=== PATIENT | male | born 1945 | race African-American/Black ===

== ENCOUNTER 2021-10-19 06:51 | Inpatient (IN) | payer OTHER ==
[~2021-10-19] VITALS: Ht 167.6 cm; Wt 86.7 kg
[~2021-10-19 06:51] MED LIST: APIX5TAB MT; ATOR40TA70 MT; CHOL400D7 PO; FINA5TAB11 MT; FURO-151 MT; ISOS60TA76 MT; METO10TA8 PO; NIFE-33 PO; OMEP40CA20 PO; POTA15TA11 MT; SILD20TA PO; TAMS-11 MT
[2021-10-19 08:30] LABS: BASOPHILS % 0.7 % (0.0-2.0); EOSINOPHILS % 1.7 % (0.0-5.0); HEMATOCRIT. 21.6 % (42.0-52.0); LYMPHOCYTES % 15.2 % (20.0-50.0); MEAN CORPUSCULAR HEMOGLOBIN 23.4 pg (28.0-32.0); MEAN CORPUSCULAR VOLUME 72.4 fL (80.0-94.0); MEAN PLATELET VOLUME 6.5 fl (7.4-10.4); MONOCYTES % 9.1 % (2.0-8.0); NEUTROPHILS % 73.3 % (40.0-76.0); PLATELET 224 x1000/uL (130-400); RED BLOOD CELL COUNT 2.98 mill/uL (4.7-6.1); RED CELL DISTRIBUTION WIDTH 20.8 % (11.6-14.6)
[2021-10-19 08:38] LABS: CHLORIDE 101 mEq/L (98-107)
[2021-10-19] MEDS ORDERED: FUROSEMIDE 40MG/4ML VIAL IVP NR (09:21)
[2021-10-19] MEDS ORDERED: ASPIRIN 325MG EC TABLET PO ONE (12:15)
[2021-10-19 16:00] VITALS: BP 139/94
[2021-10-19 16:30] VITALS: BP 139/94
[2021-10-19] MEDS ORDERED: NON FORMULARY PATIENT HOME MED PO SCH (18:00)
[2021-10-19] MEDS ORDERED: *PATIENT'S OWN MEDICATION STORAGE XX SCH (18:15)
[2021-10-19] MEDS: POTASSIUM CHLORIDE 20MEQ TABLET SR PO SCH (18:47)
[2021-10-19] MEDS: ISOSORBIDE MONONITRATE 60MG TABLET SR 24HR PO SCH (18:47)
[2021-10-19 20:00] VITALS: BP 137/69
[2021-10-19] MEDS: SACUBITRIL/VALSARTAN 24MG/26MG TABLET PO SCH (21:44)
[2021-10-19] MEDS: FUROSEMIDE 40MG/4ML VIAL IVP SCH (21:44)
[2021-10-19] MEDS: TAMSULOSIN HCL 0.4MG SR CAPSULE PO SCH (21:46)
[2021-10-19] MEDS: SILDENAFIL CITRATE 20MG TABLET PO SCH (21:47)
[2021-10-19] MEDS: NIFEDIPINE XL 30MG TAB PO SCH (21:47)
[2021-10-19] MEDS: ATORVASTATIN CALCIUM 40MG TABLET PO SCH (21:47)
[2021-10-20] VITALS: BP 129/77
[2021-10-20 04:00] VITALS: BP 107/55
[2021-10-20] MEDS: ISOSORBIDE MONONITRATE 60MG TABLET SR 24HR PO SCH ×2 (06:00→17:19)
[2021-10-20] MEDS: SILDENAFIL CITRATE 20MG TABLET PO SCH ×3 (06:22→21:27)
[2021-10-20] MEDS: OMEPRAZOLE 20MG CAPSULE EXTENDED RELEASE PO SCH (06:23)
[2021-10-20 08:00] VITALS: BP 104/44
[2021-10-20 08:29] LABS: BASOPHILS % 0.8 % (0.0-2.0); EOSINOPHILS % 2.6 % (0.0-5.0); HEMATOCRIT. 21.3 % (42.0-52.0); LYMPHOCYTES % 18.9 % (20.0-50.0); MEAN CORPUSCULAR HEMOGLOBIN 23.3 pg (28.0-32.0); MEAN CORPUSCULAR VOLUME 73.3 fL (80.0-94.0); MEAN PLATELET VOLUME 6.7 fl (7.4-10.4); MONOCYTES % 7.7 % (2.0-8.0); PLATELET 215 x1000/uL (130-400); RED BLOOD CELL COUNT 2.91 mill/uL (4.7-6.1); RED CELL DISTRIBUTION WIDTH 21.1 % (11.6-14.6)
[2021-10-20 08:37] LABS: HEMOGLOBIN. 6.8 g/dL (14.0-18.0)
[2021-10-20] MEDS: NIFEDIPINE XL 30MG TAB PO SCH ×3 (09:00→21:27)
[2021-10-20] MEDS ORDERED: APIXABAN 5 MG TABLET PO SCH (09:00)
[2021-10-20] MEDS ORDERED: NON FORMULARY PATIENT HOME MED XX SCH (09:00)
[2021-10-20] MEDS: FUROSEMIDE 40MG/4ML VIAL IVP SCH (09:19)
[2021-10-20] MEDS: CHOLECALCIFEROL (VIT D3) 400 UNIT TABLET PO SCH (09:20)
[2021-10-20] MEDS: POTASSIUM CHLORIDE 20MEQ TABLET SR PO SCH (09:20)
[2021-10-20] MEDS: FINASTERIDE 5MG TABLET PO SCH (09:20)
[2021-10-20] MEDS: METOLAZONE 2.5MG TABLET PO SCH (09:20)
[2021-10-20] MEDS ORDERED: POTASSIUM CHLORIDE 20MEQ TABLET SR PO NR (11:30)
[2021-10-20 12:00] VITALS: BP 103/49
[2021-10-20 16:00] VITALS: BP 112/49
[2021-10-20 17:14] LABS: TOTAL IRON BINDING CAPACITY 398 ug/dL (250-450)
[2021-10-20] MEDS: SACUBITRIL/VALSARTAN 24MG/26MG TABLET PO SCH (17:19)
[2021-10-20 20:00] VITALS: BP 111/70
[2021-10-20] MEDS: CARVEDILOL 3.125 MG TABLET PO SCH (21:27)
[2021-10-20] MEDS: ATORVASTATIN CALCIUM 40MG TABLET PO SCH (21:27)
[2021-10-20] MEDS: TAMSULOSIN HCL 0.4MG SR CAPSULE PO SCH (21:27)
[2021-10-21] VITALS (14 sets, daily range): BP systolic 89–120; BP diastolic 43–60
[2021-10-21] MEDS: ISOSORBIDE MONONITRATE 60MG TABLET SR 24HR PO SCH ×2 (05:48→18:00)
[2021-10-21] MEDS: OMEPRAZOLE 20MG CAPSULE EXTENDED RELEASE PO SCH (05:48)
[2021-10-21] MEDS: SACUBITRIL/VALSARTAN 24MG/26MG TABLET PO SCH ×2 (05:48→18:03)
[2021-10-21] MEDS: SILDENAFIL CITRATE 20MG TABLET PO SCH ×3 (05:48→22:07)
[2021-10-21 06:08] LABS: BASOPHILS % 0.4 % (0.0-2.0); EOSINOPHILS % 2.8 % (0.0-5.0); LYMPHOCYTES % 14.8 % (20.0-50.0); MEAN CORPUSCULAR VOLUME 73.5 fL (80.0-94.0); MEAN PLATELET VOLUME 7.1 fl (7.4-10.4); PLATELET 246 x1000/uL (130-400); RED BLOOD CELL COUNT 2.53 mill/uL (4.7-6.1)
[2021-10-21 06:50] LABS: HEMATOCRIT. 18.6 % (42.0-52.0); HEMOGLOBIN. 5.8 g/dL (14.0-18.0)
[2021-10-21] MEDS: NIFEDIPINE XL 30MG TAB PO SCH ×2 (09:00→22:07)
[2021-10-21] MEDS: CARVEDILOL 3.125 MG TABLET PO SCH ×2 (09:00→22:06)
[2021-10-21] MEDS: FINASTERIDE 5MG TABLET PO SCH (09:06)
[2021-10-21] MEDS: POTASSIUM CHLORIDE 20MEQ TABLET SR PO SCH (09:06)
[2021-10-21] MEDS: METOLAZONE 2.5MG TABLET PO SCH (09:06)
[2021-10-21] MEDS: FUROSEMIDE 40MG/4ML VIAL IVP SCH (09:06)
[2021-10-21] MEDS: CHOLECALCIFEROL (VIT D3) 400 UNIT TABLET PO SCH (09:06)
[2021-10-21] MEDS ORDERED: FUROSEMIDE 40MG/4ML VIAL IVP SCH (12:00)
[2021-10-21 12:37] LABS: CREATINE KINASE 48 IU/L (39-308)
[2021-10-21] MEDS: PANTOPRAZOLE SODIUM 40 MG/VIAL IV SCH ×2 (14:39→22:06)
[2021-10-21] MEDS: MORPHINE SULFATE 2 MG/ML CPJ (NOT FOR IM USE) IV PRN (14:40)
[2021-10-21 17:25] LABS: INR 1.4; PROTHROMBIN TIME 14.3 sec (9.6-11.0)
[2021-10-21 17:32] LABS: HEMOGLOBIN 6.6 g/dL (14.0-18.0)
[2021-10-21 17:33] LABS: HEMATOCRIT 20.2 % (42.0-52.0)
[2021-10-21 17:55] LABS: FOLIC ACID (FOLATE) SERUM 9.6 ng/mL (>5.38)
[2021-10-21] MEDS: TAMSULOSIN HCL 0.4MG SR CAPSULE PO SCH (22:06)
[2021-10-21] MEDS: ATORVASTATIN CALCIUM 40MG TABLET PO SCH (22:07)
[2021-10-21] MEDS ORDERED: NALOXONE HCL 0.4MG/ML VIAL IV PRN (23:30)
[2021-10-22] VITALS: BP 104/55
[2021-10-22 00:18] LABS: HEMATOCRIT 23.2 % (42.0-52.0); HEMOGLOBIN 7.6 g/dL (14.0-18.0)
[2021-10-22 04:00] VITALS: BP 111/63
[2021-10-22] MEDS: SACUBITRIL/VALSARTAN 24MG/26MG TABLET PO SCH ×2 (06:54→17:15)
[2021-10-22] MEDS: SILDENAFIL CITRATE 20MG TABLET PO SCH ×3 (06:54→22:24)
[2021-10-22] MEDS: ISOSORBIDE MONONITRATE 60MG TABLET SR 24HR PO SCH ×2 (06:54→17:14)
[2021-10-22 07:33] LABS: BASOPHILS % 0.8 % (0.0-2.0); EOSINOPHILS % 2.8 % (0.0-5.0); HEMATOCRIT. 23.2 % (42.0-52.0); HEMOGLOBIN. 7.5 g/dL (14.0-18.0); MEAN CORPUSCULAR HEMOGLOBIN 24.9 pg (28.0-32.0); MEAN CORPUSCULAR VOLUME 76.4 fL (80.0-94.0); MEAN PLATELET VOLUME 7.2 fl (7.4-10.4); MONOCYTES % 9.8 % (2.0-8.0); NEUTROPHILS % 69.6 % (40.0-76.0); PLATELET 247 x1000/uL (130-400); RED BLOOD CELL COUNT 3.03 mill/uL (4.7-6.1); RED CELL DISTRIBUTION WIDTH 21.9 % (11.6-14.6)
[2021-10-22 08:00] VITALS: BP 105/51
[2021-10-22] MEDS: CARVEDILOL 3.125 MG TABLET PO SCH ×2 (09:00→21:00)
[2021-10-22] MEDS: NIFEDIPINE XL 30MG TAB PO SCH ×2 (09:00→22:24)
[2021-10-22] MEDS: FUROSEMIDE 40MG/4ML VIAL IVP SCH (09:45)
[2021-10-22] MEDS: POTASSIUM CHLORIDE 20MEQ TABLET SR PO SCH (09:45)
[2021-10-22] MEDS: FINASTERIDE 5MG TABLET PO SCH (09:45)
[2021-10-22] MEDS: PANTOPRAZOLE SODIUM 40 MG/VIAL IV SCH ×2 (09:45→22:23)
[2021-10-22] MEDS: METOLAZONE 2.5MG TABLET PO SCH (09:45)
[2021-10-22] MEDS: CHOLECALCIFEROL (VIT D3) 400 UNIT TABLET PO SCH (09:45)
[2021-10-22] MEDS: MORPHINE SULFATE 2 MG/ML CPJ (NOT FOR IM USE) IV PRN (09:48)
[2021-10-22 11:59] LABS: BG BASE EXCESS 0.9 mmol/L (-2.0-2.0); BG HCO3 ACT 24.6 mmol/L (22.0-26.0); BG METHEMOGLOBIN 0.1 % (0.0-1.5); BG OXYGEN SATURATION 88.9 % (92.0-98.5); BG OXYHEMOGLOBIN 87.9 % (94.0-97.0); BG PCO2 35.2 mmHg (35.0-45.0); BG PH 7.462 (7.350-7.450); BG PO2 57.2 mmHg (75.0-100.0); BG SAMPLE SITE RIGHT BRACHIAL; BG TOTAL HEMOGLOBIN 7.9 g/dL (12.0-18.0); BG VENT MODE ROOM AIR
[2021-10-22 12:00] VITALS: BP 100/59
[2021-10-22 12:55] LABS: HEMATOCRIT 22.9 % (42.0-52.0); HEMOGLOBIN 7.4 g/dL (14.0-18.0)
[2021-10-22] MEDS: IRON SUCROSE COMPLEX 100 MG/5 ML ML IV SCH (13:13)
[2021-10-22 14:46] LABS: INR 1.5; PROTHROMBIN TIME 15.3 sec (9.6-11.0)
[2021-10-22 16:00] VITALS: BP 111/64
[2021-10-22 20:00] VITALS: BP 113/57
[2021-10-22 21:09] LABS: HEMATOCRIT 23.5 % (42.0-52.0); HEMOGLOBIN 7.5 g/dL (14.0-18.0)
[2021-10-22] MEDS: ATORVASTATIN CALCIUM 40MG TABLET PO SCH (22:24)
[2021-10-22] MEDS: TAMSULOSIN HCL 0.4MG SR CAPSULE PO SCH (22:24)
[2021-10-23] VITALS (17 sets, daily range): BP systolic 107–141; BP diastolic 53–88
[2021-10-23] MEDS: DEXT 5%/0.45% NACL 1000ML 1,000 ML IV SCH (00:48)
[2021-10-23 01:53] LABS: HEMATOCRIT 22.9 % (42.0-52.0); HEMOGLOBIN 7.3 g/dL (14.0-18.0)
[2021-10-23] MEDS: SILDENAFIL CITRATE 20MG TABLET PO SCH ×3 (06:00→22:26)
[2021-10-23] MEDS: ISOSORBIDE MONONITRATE 60MG TABLET SR 24HR PO SCH ×2 (06:00→18:00)
[2021-10-23] MEDS: SACUBITRIL/VALSARTAN 24MG/26MG TABLET PO SCH (06:00)
[2021-10-23 06:25] LABS: BASOPHILS % 0.5 % (0.0-2.0); EOSINOPHILS % 2.8 % (0.0-5.0); HEMATOCRIT. 21.9 % (42.0-52.0); HEMOGLOBIN. 7.1 g/dL (14.0-18.0); LYMPHOCYTES % 16.7 % (20.0-50.0); MEAN CORPUSCULAR HEMOGLOBIN 25.1 pg (28.0-32.0); MEAN CORPUSCULAR VOLUME 77.6 fL (80.0-94.0); MEAN PLATELET VOLUME 7.1 fl (7.4-10.4); MONOCYTES % 9.2 % (2.0-8.0); NEUTROPHILS % 70.8 % (40.0-76.0); PLATELET 237 x1000/uL (130-400); RED BLOOD CELL COUNT 2.83 mill/uL (4.7-6.1); RED CELL DISTRIBUTION WIDTH 22.1 % (11.6-14.6)
[2021-10-23 06:36] LABS: INR 2.7; PROTHROMBIN TIME 27.2 sec (9.6-11.0)
[2021-10-23] MEDS: FINASTERIDE 5MG TABLET PO SCH (09:00)
[2021-10-23] MEDS: NIFEDIPINE XL 30MG TAB PO SCH ×2 (09:00→22:27)
[2021-10-23] MEDS: METOLAZONE 2.5MG TABLET PO SCH (09:00)
[2021-10-23] MEDS: POTASSIUM CHLORIDE 20MEQ TABLET SR PO SCH (09:00)
[2021-10-23] MEDS: CARVEDILOL 3.125 MG TABLET PO SCH ×2 (09:00→22:27)
[2021-10-23] MEDS: CHOLECALCIFEROL (VIT D3) 400 UNIT TABLET PO SCH (09:00)
[2021-10-23 09:07] LABS: A/G RATIO 0.8 (0.7-1.7); ALBUMIN 3.2 g/dL (2.9-4.4); ALPHA-1-GLOBULIN 0.2 g/dL (0.0-0.4); ALPHA-2-GLOBULIN 0.4 g/dL (0.4-1.0); GAMMA GLOBULINS 2.4 g/dL (0.4-1.8); M-SPIKE 1.1 g/dL (Not Observed); TOTAL PROTEIN SERUM 7.2 g/dL (6.0-8.5)
[2021-10-23] MEDS: PANTOPRAZOLE SODIUM 40 MG/VIAL IV SCH ×2 (09:57→22:34)
[2021-10-23] MEDS: FUROSEMIDE 40MG/4ML VIAL IVP SCH (09:57)
[2021-10-23] MEDS: IRON SUCROSE COMPLEX 100 MG/5 ML ML IV SCH (10:30)
[2021-10-23 10:31] LABS: HEMATOCRIT 22.2 % (42.0-52.0); HEMOGLOBIN 7.2 g/dL (14.0-18.0)
[2021-10-23] MEDS ORDERED: FUROSEMIDE 40MG/4ML VIAL IVP SCH (13:00)
[2021-10-23 13:23] LABS: PLATELET ESTIMATE NORMAL
[2021-10-23] MEDS ORDERED: MIDAZOLAM HCL 2 MG/2 ML VIAL ONE (15:42)
[2021-10-23] MEDS ORDERED: ETOMIDATE 2MG/ML 10ML VIAL IV ONE (15:42)
[2021-10-23] MEDS ORDERED: GLYCOPYRROLATE 0.2 MG/ML 2ML VIAL ONE (15:54)
[2021-10-23] MEDS ORDERED: PROPOFOL 200MG/20ML VIAL IV ONE (15:55)
[2021-10-23] MEDS ORDERED: HYDRALAZINE 20MG/ML VIAL IV PRN (16:00)
[2021-10-23 20:14] LABS: HEMATOCRIT 25.4 % (42.0-52.0); HEMOGLOBIN 8.2 g/dL (14.0-18.0); MEAN CORPUSCULAR HEMOGLOBIN 25.7 pg (28.0-32.0); MEAN CORPUSCULAR VOLUME 79.6 fL (80.0-94.0); PLATELET 222 x1000/uL (130-400); RED CELL DISTRIBUTION WIDTH 21.6 % (11.6-14.6)
[2021-10-23 20:21] LABS: CHLORIDE 105 mEq/L (98-107)
[2021-10-23 20:24] LABS: INR 1.3; PARTIAL THROMBOPLASTIN TIME 29.3 sec (23.4-31.0); PROTHROMBIN TIME 13.7 sec (9.6-11.0)
[2021-10-23 20:54] LABS: HEPATITIS B SURFACE ANTIGEN NEGATIVE
[2021-10-23] MEDS: ATORVASTATIN CALCIUM 40MG TABLET PO SCH (22:24)
[2021-10-23] MEDS: TAMSULOSIN HCL 0.4MG SR CAPSULE PO SCH (22:26)
[2021-10-24] VITALS: BP 98/53
[2021-10-24] MEDS: DEXT 5%/0.45% NACL 1000ML 1,000 ML IV SCH (00:51)
[2021-10-24 04:00] VITALS: BP 104/52
[2021-10-24 06:54] LABS: INR 1.4; PROTHROMBIN TIME 14.2 sec (9.6-11.0)
[2021-10-24 07:27] LABS: BASOPHILS % 0.6 % (0.0-2.0); EOSINOPHILS % 2.2 % (0.0-5.0); HEMATOCRIT. 26.2 % (42.0-52.0); HEMOGLOBIN. 8.4 g/dL (14.0-18.0); LYMPHOCYTES % 14.2 % (20.0-50.0); MEAN CORPUSCULAR HEMOGLOBIN 25.7 pg (28.0-32.0); MEAN CORPUSCULAR VOLUME 79.7 fL (80.0-94.0); MONOCYTES % 8.4 % (2.0-8.0); NEUTROPHILS % 74.6 % (40.0-76.0); PLATELET 222 x1000/uL (130-400); RED BLOOD CELL COUNT 3.29 mill/uL (4.7-6.1); RED CELL DISTRIBUTION WIDTH 21.5 % (11.6-14.6)
[2021-10-24 08:00] VITALS: BP 111/73
[2021-10-24] MEDS: CARVEDILOL 3.125 MG TABLET PO SCH ×2 (09:00→21:00)
[2021-10-24] MEDS: PANTOPRAZOLE SODIUM 40 MG/VIAL IV SCH ×3 (09:00→22:03)
[2021-10-24] MEDS: FINASTERIDE 5MG TABLET PO SCH (11:47)
[2021-10-24] MEDS: POTASSIUM CHLORIDE 20MEQ TABLET SR PO SCH (11:47)
[2021-10-24] MEDS: FUROSEMIDE 40MG/4ML VIAL IVP SCH (11:47)
[2021-10-24] MEDS: CHOLECALCIFEROL (VIT D3) 400 UNIT TABLET PO SCH (11:47)
[2021-10-24] MEDS: METOLAZONE 2.5MG TABLET PO SCH (11:47)
[2021-10-24] MEDS: NIFEDIPINE XL 30MG TAB PO SCH ×2 (11:48→21:00)
[2021-10-24 12:00] VITALS: BP 114/71
[2021-10-24] MEDS ORDERED: IRON SUCROSE COMPLEX 100 MG/5 ML ML IV SCH (14:00)
[2021-10-24] MEDS: SILDENAFIL CITRATE 20MG TABLET PO SCH ×2 (14:16→22:07)
[2021-10-24] MEDS ORDERED: PHYTONADIONE 10MG/ML AMP SUBCUT NR (15:00)
[2021-10-24 16:00] VITALS: BP 95/58
[2021-10-24] MEDS: BISACODYL 5MG TABLET PO SCH ×2 (17:30→22:04)
[2021-10-24] MEDS: SORBITOL 70% SOLN 30ML PO SCH ×2 (17:30→22:08)
[2021-10-24] MEDS: METOCLOPRAMIDE HCL 10MG/2ML VIAL IV SCH ×2 (17:31→22:03)
[2021-10-24] MEDS: SACUBITRIL/VALSARTAN 24MG/26MG TABLET PO SCH ×2 (17:33→17:35)
[2021-10-24] MEDS: DEXT 5%/0.45% NACL KCL 40MEQ/L 1,000 ML IV SCH (17:33)
[2021-10-24] MEDS: ISOSORBIDE MONONITRATE 60MG TABLET SR 24HR PO SCH (17:35)
[2021-10-24 19:57] LABS: CLARITY URINE CLEAR (CLEAR); COLOR URINE YELLOW (YELLOW); KETONES URINE NEGATIVE (NEGATIVE); LEUKOCYTE ESTERASE URINE TRACE (NEGATIVE); NITRITE URINE NEGATIVE (NEGATIVE); OCCULT BLOOD URINE NEGATIVE (NEGATIVE); PROTEIN URINE NEGATIVE (NEGATIVE); UROBILINOGEN URINE 0.2 E.U./dL (0.2-1.0)
[2021-10-24 20:00] VITALS: BP 110/45
[2021-10-24 20:33] LABS: HEMATOCRIT 28.4 % (42.0-52.0)
[2021-10-24] MEDS: TAMSULOSIN HCL 0.4MG SR CAPSULE PO SCH (22:06)
[2021-10-24] MEDS: ATORVASTATIN CALCIUM 40MG TABLET PO SCH (22:07)
[2021-10-25] VITALS: BP 110/57
[2021-10-25 02:08] LABS: HEMATOCRIT 27.4 % (42.0-52.0); HEMOGLOBIN 8.9 g/dL (14.0-18.0)
[2021-10-25] MEDS: SORBITOL 70% SOLN 30ML PO SCH ×2 (02:53→06:20)
[2021-10-25] MEDS: METOCLOPRAMIDE HCL 10MG/2ML VIAL IV SCH ×2 (02:53→06:20)
[2021-10-25] MEDS: BISACODYL 5MG TABLET PO SCH ×2 (02:53→06:20)
[2021-10-25 03:55] LABS: EOSINOPHILS % 3.3 % (0.0-5.0); HEMATOCRIT. 27.4 % (42.0-52.0); HEMOGLOBIN. 8.9 g/dL (14.0-18.0); LYMPHOCYTES % 12.1 % (20.0-50.0); MEAN CORPUSCULAR HEMOGLOBIN 25.6 pg (28.0-32.0); MEAN CORPUSCULAR VOLUME 78.8 fL (80.0-94.0); MEAN PLATELET VOLUME 7.4 fl (7.4-10.4); MONOCYTES % 9.8 % (2.0-8.0); NEUTROPHILS % 73.8 % (40.0-76.0); PLATELET 252 x1000/uL (130-400); RED BLOOD CELL COUNT 3.47 mill/uL (4.7-6.1); RED CELL DISTRIBUTION WIDTH 22.3 % (11.6-14.6)
[2021-10-25 04:00] VITALS: BP 102/56
[2021-10-25 04:10] LABS: PHOSPHORUS 3.7 mg/dL (2.5-4.9)
[2021-10-25 04:38] LABS: INR 1.3
[2021-10-25] MEDS: SACUBITRIL/VALSARTAN 24MG/26MG TABLET PO SCH ×2 (06:00→18:23)
[2021-10-25] MEDS: SILDENAFIL CITRATE 20MG TABLET PO SCH ×3 (06:00→22:39)
[2021-10-25] MEDS: ISOSORBIDE MONONITRATE 60MG TABLET SR 24HR PO SCH ×2 (06:00→18:24)
[2021-10-25 08:00] VITALS: BP 122/58
[2021-10-25] MEDS: POTASSIUM CHLORIDE 20MEQ TABLET SR PO SCH ×2 (08:23→09:00)
[2021-10-25] MEDS: FUROSEMIDE 40MG/4ML VIAL IVP SCH (08:23)
[2021-10-25] MEDS: PANTOPRAZOLE SODIUM 40 MG/VIAL IV SCH ×2 (08:23→20:15)
[2021-10-25] MEDS: NIFEDIPINE XL 30MG TAB PO SCH ×3 (08:23→20:14)
[2021-10-25] MEDS: FINASTERIDE 5MG TABLET PO SCH ×2 (08:23→09:00)
[2021-10-25] MEDS: CARVEDILOL 3.125 MG TABLET PO SCH ×3 (08:24→20:15)
[2021-10-25] MEDS: METOLAZONE 2.5MG TABLET PO SCH ×2 (08:24→09:00)
[2021-10-25] MEDS: CHOLECALCIFEROL (VIT D3) 400 UNIT TABLET PO SCH ×2 (08:27→09:00)
[2021-10-25] MEDS ORDERED: POTASSIUM CHLORIDE 20MEQ/PACKET PO NR (09:45)
[2021-10-25 12:00] VITALS: BP 121/62
[2021-10-25] MEDS: DEXT 5%/0.45% NACL KCL 40MEQ/L 1,000 ML IV SCH (13:39)
[2021-10-25] MEDS ORDERED: KCL 20MEQ/100ML PREMIX 100 ML IV NR (14:00)
[2021-10-25] MEDS ORDERED: PROPOFOL 200MG/20ML VIAL IV ONE ×2 (15:12→15:58)
[2021-10-25] MEDS ORDERED: MIDAZOLAM HCL 2 MG/2 ML VIAL ONE (15:12)
[2021-10-25] MEDS ORDERED: LIDOCAINE HCL 1% 10 MG/ML 10ML VIAL ONE (15:13)
[2021-10-25] MEDS ORDERED: FENTANYL CITRATE/PF 50MCG/ML 2ML VIAL ONE (15:24)
[2021-10-25] MEDS ORDERED: GLYCOPYRROLATE 0.2 MG/ML 2ML VIAL ONE (15:28)
[2021-10-25 18:05] VITALS: BP 138/68
[2021-10-25 20:00] VITALS: BP 152/69
[2021-10-25] MEDS: ATORVASTATIN CALCIUM 40MG TABLET PO SCH (20:15)
[2021-10-25] MEDS: TAMSULOSIN HCL 0.4MG SR CAPSULE PO SCH (20:15)
[2021-10-26] VITALS (7 sets, daily range): BP systolic 93–133; BP diastolic 45–76
[2021-10-26] MEDS: SACUBITRIL/VALSARTAN 24MG/26MG TABLET PO SCH ×2 (05:22→17:21)
[2021-10-26] MEDS: ISOSORBIDE MONONITRATE 60MG TABLET SR 24HR PO SCH ×2 (05:24→17:21)
[2021-10-26] MEDS: SILDENAFIL CITRATE 20MG TABLET PO SCH ×3 (05:27→21:29)
[2021-10-26 07:34] LABS: CHLORIDE 108 mEq/L (98-107)
[2021-10-26] MEDS: CHOLECALCIFEROL (VIT D3) 400 UNIT TABLET PO SCH (08:33)
[2021-10-26] MEDS: FINASTERIDE 5MG TABLET PO SCH (08:33)
[2021-10-26] MEDS: FUROSEMIDE 40MG TABLET PO SCH (08:33)
[2021-10-26] MEDS: METOLAZONE 2.5MG TABLET PO SCH (08:33)
[2021-10-26] MEDS: CARVEDILOL 3.125 MG TABLET PO SCH ×2 (08:34→21:00)
[2021-10-26] MEDS: NIFEDIPINE XL 30MG TAB PO SCH ×2 (08:34→21:00)
[2021-10-26] MEDS: POTASSIUM CHLORIDE 20MEQ/PACKET PO SCH (08:34)
[2021-10-26] MEDS: PANTOPRAZOLE SODIUM 40 MG/VIAL IV SCH ×2 (08:34→20:15)
[2021-10-26] MEDS: DEXT 5%/0.45% NACL KCL 40MEQ/L 1,000 ML IV SCH (08:40)
[2021-10-26] MEDS: ATORVASTATIN CALCIUM 40MG TABLET PO SCH (20:15)
[2021-10-26] MEDS: TAMSULOSIN HCL 0.4MG SR CAPSULE PO SCH (20:16)
[2021-10-27] VITALS: BP 121/63
[2021-10-27 04:00] VITALS: BP 114/59
[2021-10-27] MEDS: ISOSORBIDE MONONITRATE 60MG TABLET SR 24HR PO SCH (05:03)
[2021-10-27] MEDS: SACUBITRIL/VALSARTAN 24MG/26MG TABLET PO SCH (05:03)
[2021-10-27] MEDS: SILDENAFIL CITRATE 20MG TABLET PO SCH ×2 (05:04→13:50)
[2021-10-27] MEDS: DEXT 5%/0.45% NACL KCL 40MEQ/L 1,000 ML IV SCH (05:05)
[2021-10-27 06:40] LABS: CHLORIDE 106 mEq/L (98-107)
[2021-10-27 08:00] VITALS: BP 110/55
[2021-10-27] MEDS: FUROSEMIDE 40MG TABLET PO SCH (08:12)
[2021-10-27] MEDS: PANTOPRAZOLE SODIUM 40 MG/VIAL IV SCH (08:12)
[2021-10-27] MEDS: CHOLECALCIFEROL (VIT D3) 400 UNIT TABLET PO SCH (08:12)
[2021-10-27] MEDS: FINASTERIDE 5MG TABLET PO SCH (08:13)
[2021-10-27] MEDS: CARVEDILOL 3.125 MG TABLET PO SCH (08:13)
[2021-10-27] MEDS: METOLAZONE 2.5MG TABLET PO SCH (08:13)
[2021-10-27] MEDS: POTASSIUM CHLORIDE 20MEQ/PACKET PO SCH (08:13)
[2021-10-27] MEDS: NIFEDIPINE XL 30MG TAB PO SCH (08:14)
[2021-10-27 12:00] VITALS: BP 123/75
[2021-10-27 12:45] VITALS: BP 123/75
[2021-10-27] MEDS ORDERED: CARV3.1242 MT (13:01)
== END 2021-10-27 17:35 | disposition home or self-care (01) | DRG 377 ==
LOC: ER 08:07 → 8WST 12:08 → EDBEDREQ 12:10 → EDBEDREQTM 12:10 → ENRESERV 13:04
PROVIDERS: ADMIT Internal Medicine; ATTEND Internal Medicine
PROC: 30233N1 Transfusion of Nonautologous Red Blood Cells into Peripheral Vein, Percutaneous Approach (ICD-10-PCS; 2021-10-21)
PROC: 0DJ68ZZ Inspection of Stomach, Via Natural or Artificial Opening Endoscopic (ICD-10-PCS; principal; 2021-10-23)
PROC: 0W3P8ZZ Control Bleeding in Gastrointestinal Tract, Via Natural or Artificial Opening Endoscopic (ICD-10-PCS; 2021-10-24)
PROC: 0D5K8ZZ Destruction of Ascending Colon, Via Natural or Artificial Opening Endoscopic (ICD-10-PCS; 2021-10-24)
PROC: 0DBH8ZX Excision of Cecum, Via Natural or Artificial Opening Endoscopic, Diagnostic (ICD-10-PCS; 2021-10-24)
PROC: 0DJ08ZZ Inspection of Upper Intestinal Tract, Via Natural or Artificial Opening Endoscopic (ICD-10-PCS; 2021-10-25)
DX: K29.51 Unspecified chronic gastritis with bleeding (principal); N17.0 Acute kidney failure with tubular necrosis; I50.23 Acute on chronic systolic (congestive) heart failure; I13.0 Hypertensive heart and chronic kidney disease with heart failure and stage 1 through stage 4 chronic kidney disease, or unspecified chronic kidney disease; I48.20 Chronic atrial fibrillation, unspecified; D68.9 Coagulation defect, unspecified; R18.8 Other ascites; I42.0 Dilated cardiomyopathy; I27.29 Other secondary pulmonary hypertension; I27.81 Cor pulmonale (chronic); D63.8 Anemia in other chronic diseases classified elsewhere; E87.6 Hypokalemia; N18.9 Chronic kidney disease, unspecified; R09.02 Hypoxemia; Z20.822 Contact with and (suspected) exposure to COVID-19; D50.9 Iron deficiency anemia, unspecified; I25.10 Atherosclerotic heart disease of native coronary artery without angina pectoris; Z96.652 Presence of left artificial knee joint; E78.5 Hyperlipidemia, unspecified; K44.9 Diaphragmatic hernia without obstruction or gangrene; K57.30 Diverticulosis of large intestine without perforation or abscess without bleeding; K74.60 Unspecified cirrhosis of liver; N40.0 Benign prostatic hyperplasia without lower urinary tract symptoms; N20.0 Calculus of kidney; Z90.49 Acquired absence of other specified parts of digestive tract; Z79.01 Long term (current) use of anticoagulants; Z79.899 Other long term (current) drug therapy; Z79.84 Long term (current) use of oral hypoglycemic drugs
CPT/HCPCS: 36415; 36600; 71045; 74176; 76700; 76770; 78278; 80048; 80053; 80061; 81003; 82270; 82375; 82550; 82607; 82728; 82746; 82805; 83540; 83550; 83735; 83880; 84100; 84153; 84155; 84165; 84484; 85014; 85018; 85025; 85027; 85044; 86705; 86709; 86803; 86850; 86900; 86920; 86927; 87340; 87426; 88305; 93005; 93970; 97162; 99285; A9560; C1893; C9113; J1940; J2250; J2270; J2704; J2765; J3010; J3430; J3480; J3490; J7040; P9016; P9017; G0103

== ENCOUNTER 2021-11-23 11:17 | Inpatient (IN) | payer OTHER ==
[~2021-11-23] VITALS: Ht 172.7 cm; Wt 96.3 kg
[~2021-11-23 11:17] MED LIST changes: -APIX5TAB MT; +CARV3.1242 MT
[2021-11-23] MEDS ORDERED: NITROGLYCERIN OINT 1GM/INCH UDPKT TD ONE (12:00)
[2021-11-23] MEDS ORDERED: ASPIRIN 81MG TABLET PO ONE (12:00)
[2021-11-23] MEDS ORDERED: FUROSEMIDE 40MG/4ML VIAL IV ONE (12:00)
[2021-11-23 12:02] LABS: BASOPHILS % 0.6 % (0.0-2.0); EOSINOPHILS % 2.3 % (0.0-5.0); HEMOGLOBIN. 8.2 g/dL (14.0-18.0); LYMPHOCYTES % 18.3 % (20.0-50.0); MEAN CORPUSCULAR HEMOGLOBIN 25.3 pg (28.0-32.0); MEAN CORPUSCULAR VOLUME 80.6 fL (80.0-94.0); MEAN PLATELET VOLUME 7.2 fl (7.4-10.4); NEUTROPHILS % 68.8 % (40.0-76.0); PLATELET 177 x1000/uL (130-400); RED BLOOD CELL COUNT 3.23 mill/uL (4.7-6.1); RED CELL DISTRIBUTION WIDTH 25.5 % (11.6-14.6)
[2021-11-23 12:14] LABS: INR 1.5; PARTIAL THROMBOPLASTIN TIME 36.3 sec (23.4-31.0); PROTHROMBIN TIME 15.7 sec (9.6-11.0)
[2021-11-23 12:15] LABS: CHLORIDE 107 mEq/L (98-107)
[2021-11-23 12:23] LABS: PLATELET ESTIMATE NORMAL
[2021-11-23 16:00] VITALS: BP 128/63
[2021-11-23] MEDS: NIFEDIPINE XL 30MG TAB PO SCH (16:36)
[2021-11-23] MEDS: ISOSORBIDE MONONITRATE 30MG TABLET SR 24HR PO SCH (16:47)
[2021-11-23] MEDS: TAMSULOSIN HCL 0.4MG SR CAPSULE PO SCH (16:48)
[2021-11-23] MEDS: POTASSIUM CHLORIDE 10MEQ TABLET SR PO SCH (16:48)
[2021-11-23] MEDS: FINASTERIDE 5MG TABLET PO SCH (16:49)
[2021-11-23] MEDS: PANTOPRAZOLE 40MG DR TABLET PO SCH (16:49)
[2021-11-23] MEDS: SPIRONOLACTONE 25MG TABLET PO SCH (16:49)
[2021-11-23] MEDS ORDERED: FUROSEMIDE 40MG/4ML VIAL IVP SCH ×2 (17:00→17:45)
[2021-11-23 17:18] VITALS: BP 128/53
[2021-11-23] MEDS ORDERED: KETOROLAC 15MG/ML VIAL IV PRN (19:00)
[2021-11-23 20:00] VITALS: BP 133/60
[2021-11-23] MEDS: ATORVASTATIN CALCIUM 40MG TABLET PO SCH (20:38)
[2021-11-23] MEDS: ACETAMINOPHEN 325MG TABLET PO PRN (20:38)
[2021-11-23] MEDS: CARVEDILOL 3.125 MG TABLET PO SCH (21:00)
[2021-11-23] MEDS ORDERED: ENOXAPARIN 40MG/0.4ML SYR SUBCUT SCH (21:00)
[2021-11-23] MEDS: FUROSEMIDE 40MG/4ML VIAL IVP SCH (21:52)
[2021-11-24] VITALS: BP 141/72
[2021-11-24 04:00] VITALS: BP 127/93
[2021-11-24] MEDS: PANTOPRAZOLE 40MG DR TABLET PO SCH (06:48)
[2021-11-24] MEDS: FUROSEMIDE 40MG/4ML VIAL IVP SCH ×3 (06:48→20:33)
[2021-11-24 08:00] VITALS: BP 142/76
[2021-11-24 08:21] LABS: BASOPHILS % 0.7 % (0.0-2.0); EOSINOPHILS % 3.3 % (0.0-5.0); HEMATOCRIT. 26.1 % (42.0-52.0); HEMOGLOBIN. 8.4 g/dL (14.0-18.0); LYMPHOCYTES % 21.9 % (20.0-50.0); MEAN CORPUSCULAR HEMOGLOBIN 26.1 pg (28.0-32.0); MEAN PLATELET VOLUME 6.9 fl (7.4-10.4); MONOCYTES % 9.1 % (2.0-8.0); PLATELET 149 x1000/uL (130-400); RED BLOOD CELL COUNT 3.22 mill/uL (4.7-6.1); RED CELL DISTRIBUTION WIDTH 25.1 % (11.6-14.6)
[2021-11-24] MEDS: SPIRONOLACTONE 25MG TABLET PO SCH (08:58)
[2021-11-24] MEDS: CARVEDILOL 3.125 MG TABLET PO SCH ×2 (08:59→09:00)
[2021-11-24] MEDS: NIFEDIPINE XL 30MG TAB PO SCH (09:00)
[2021-11-24] MEDS: ISOSORBIDE MONONITRATE 30MG TABLET SR 24HR PO SCH (09:00)
[2021-11-24] MEDS: TAMSULOSIN HCL 0.4MG SR CAPSULE PO SCH (09:00)
[2021-11-24] MEDS: POTASSIUM CHLORIDE 10MEQ TABLET SR PO SCH (09:01)
[2021-11-24] MEDS: FINASTERIDE 5MG TABLET PO SCH (09:01)
[2021-11-24 12:00] VITALS: BP 129/75
[2021-11-24] MEDS: ACETAMINOPHEN 325MG TABLET PO PRN ×2 (12:13→20:33)
[2021-11-24] MEDS ORDERED: POTASSIUM CHLORIDE 20MEQ TABLET SR PO NR (14:15)
[2021-11-24] MEDS ORDERED: ENOXAPARIN 100MG/ML SYR SUBCUT SCH (14:30)
[2021-11-24] MEDS: SILDENAFIL CITRATE 20MG TABLET PO SCH ×2 (15:26→20:33)
[2021-11-24 16:00] VITALS: BP 127/70
[2021-11-24 20:00] VITALS: BP 125/66
[2021-11-24] MEDS: ATORVASTATIN CALCIUM 40MG TABLET PO SCH (20:33)
[2021-11-25] VITALS: BP 116/70
[2021-11-25 04:00] VITALS: BP 118/79
[2021-11-25] MEDS: FUROSEMIDE 40MG/4ML VIAL IVP SCH ×3 (05:30→22:09)
[2021-11-25] MEDS: SILDENAFIL CITRATE 20MG TABLET PO SCH ×3 (05:30→22:09)
[2021-11-25 06:19] LABS: BASOPHILS % 0.3 % (0.0-2.0); EOSINOPHILS % 2.6 % (0.0-5.0); HEMATOCRIT. 26.3 % (42.0-52.0); HEMOGLOBIN. 8.5 g/dL (14.0-18.0); LYMPHOCYTES % 24.3 % (20.0-50.0); MEAN CORPUSCULAR HEMOGLOBIN 26.1 pg (28.0-32.0); MEAN CORPUSCULAR VOLUME 80.7 fL (80.0-94.0); MEAN PLATELET VOLUME 8.3 fl (7.4-10.4); MONOCYTES % 9.9 % (2.0-8.0); NEUTROPHILS % 62.9 % (40.0-76.0); PLATELET 161 x1000/uL (130-400); RED BLOOD CELL COUNT 3.26 mill/uL (4.7-6.1); RED CELL DISTRIBUTION WIDTH 24.9 % (11.6-14.6)
[2021-11-25 08:05] VITALS: BP 121/63
[2021-11-25] MEDS: NIFEDIPINE XL 30MG TAB PO SCH (08:07)
[2021-11-25] MEDS: FAMOTIDINE 20MG TABLET PO SCH (08:07)
[2021-11-25] MEDS: TAMSULOSIN HCL 0.4MG SR CAPSULE PO SCH (08:07)
[2021-11-25] MEDS: FINASTERIDE 5MG TABLET PO SCH (08:08)
[2021-11-25] MEDS: SPIRONOLACTONE 25MG TABLET PO SCH (08:08)
[2021-11-25] MEDS: ISOSORBIDE MONONITRATE 30MG TABLET SR 24HR PO SCH (08:08)
[2021-11-25] MEDS: POTASSIUM CHLORIDE 10MEQ TABLET SR PO SCH (08:08)
[2021-11-25] MEDS: ACETAMINOPHEN 325MG TABLET PO PRN ×3 (08:12→22:09)
[2021-11-25 12:00] VITALS: BP 127/69
[2021-11-25 12:33] LABS: INR 1.5; PROTHROMBIN TIME 15.6 sec (9.6-11.0)
[2021-11-25 12:53] LABS: CLARITY URINE CLEAR (CLEAR); COLOR URINE YELLOW (YELLOW); KETONES URINE NEGATIVE (NEGATIVE); LEUKOCYTE ESTERASE URINE NEGATIVE (NEGATIVE); NITRITE URINE NEGATIVE (NEGATIVE); OCCULT BLOOD URINE NEGATIVE (NEGATIVE); PROTEIN URINE NEGATIVE (NEGATIVE); SPECIFIC GRAVITY URINE 1.009 (1.005-1.030); UROBILINOGEN URINE 0.2 E.U./dL (0.2-1.0)
[2021-11-25 16:30] VITALS: BP 121/72
[2021-11-25] MEDS: APIXABAN 2.5 MG TABLET PO SCH (16:33)
[2021-11-25 20:00] VITALS: BP 120/70
[2021-11-25] MEDS: ATORVASTATIN CALCIUM 40MG TABLET PO SCH (22:09)
[2021-11-26] VITALS: BP 117/66
[2021-11-26 04:00] VITALS: BP 120/60
[2021-11-26] MEDS: FUROSEMIDE 40MG/4ML VIAL IVP SCH ×3 (05:10→21:32)
[2021-11-26] MEDS: ACETAMINOPHEN 325MG TABLET PO PRN (05:11)
[2021-11-26] MEDS: SILDENAFIL CITRATE 20MG TABLET PO SCH ×3 (05:11→21:32)
[2021-11-26 06:46] LABS: HEMATOCRIT. 25.8 % (42.0-52.0); HEMOGLOBIN. 8.3 g/dL (14.0-18.0); MEAN CORPUSCULAR HEMOGLOBIN 25.5 pg (28.0-32.0); MEAN CORPUSCULAR VOLUME 79.5 fL (80.0-94.0); PLATELET 158 x1000/uL (130-400); RED BLOOD CELL COUNT 3.24 mill/uL (4.7-6.1); RED CELL DISTRIBUTION WIDTH 24.8 % (11.6-14.6)
[2021-11-26 08:00] VITALS: BP 117/58
[2021-11-26] MEDS: FAMOTIDINE 20MG TABLET PO SCH (08:45)
[2021-11-26] MEDS: APIXABAN 2.5 MG TABLET PO SCH ×2 (08:46→16:37)
[2021-11-26] MEDS: FINASTERIDE 5MG TABLET PO SCH (08:46)
[2021-11-26] MEDS: TAMSULOSIN HCL 0.4MG SR CAPSULE PO SCH (08:46)
[2021-11-26] MEDS: POTASSIUM CHLORIDE 10MEQ TABLET SR PO SCH (08:47)
[2021-11-26] MEDS: SPIRONOLACTONE 25MG TABLET PO SCH (08:47)
[2021-11-26] MEDS: ISOSORBIDE MONONITRATE 30MG TABLET SR 24HR PO SCH (08:50)
[2021-11-26 10:07] LABS: PLATELET ESTIMATE NORMAL
[2021-11-26] MEDS ORDERED: POTASSIUM CHLORIDE 20MEQ TABLET SR PO NR (10:15)
[2021-11-26 12:00] VITALS: BP 116/54
[2021-11-26] MEDS ORDERED: METOLAZONE 2.5MG TABLET PO NR (13:00)
[2021-11-26 16:00] VITALS: BP 115/88
[2021-11-26 20:00] VITALS: BP 93/63
[2021-11-26] MEDS: ATORVASTATIN CALCIUM 40MG TABLET PO SCH (21:32)
[2021-11-27] VITALS: BP 141/73
[2021-11-27] MEDS: FUROSEMIDE 40MG/4ML VIAL IVP SCH ×3 (00:22→13:07)
[2021-11-27] MEDS: SILDENAFIL CITRATE 20MG TABLET PO SCH ×3 (00:27→13:08)
[2021-11-27 04:00] VITALS: BP 125/59
[2021-11-27 06:57] LABS: BASOPHILS % 0.5 % (0.0-2.0); EOSINOPHILS % 2.6 % (0.0-5.0); HEMATOCRIT. 25.6 % (42.0-52.0); HEMOGLOBIN. 8.3 g/dL (14.0-18.0); LYMPHOCYTES % 18.2 % (20.0-50.0); MEAN CORPUSCULAR HEMOGLOBIN 25.7 pg (28.0-32.0); MEAN CORPUSCULAR VOLUME 79.4 fL (80.0-94.0); MEAN PLATELET VOLUME 6.8 fl (7.4-10.4); MONOCYTES % 10.5 % (2.0-8.0); NEUTROPHILS % 68.2 % (40.0-76.0); PLATELET 146 x1000/uL (130-400); RED BLOOD CELL COUNT 3.22 mill/uL (4.7-6.1); RED CELL DISTRIBUTION WIDTH 24.9 % (11.6-14.6)
[2021-11-27 08:00] VITALS: BP 144/80
[2021-11-27] MEDS: POTASSIUM CHLORIDE 10MEQ TABLET SR PO SCH (08:27)
[2021-11-27] MEDS: ISOSORBIDE MONONITRATE 30MG TABLET SR 24HR PO SCH (08:27)
[2021-11-27] MEDS: TAMSULOSIN HCL 0.4MG SR CAPSULE PO SCH (08:27)
[2021-11-27] MEDS: SPIRONOLACTONE 25MG TABLET PO SCH (08:28)
[2021-11-27] MEDS: FAMOTIDINE 20MG TABLET PO SCH (08:28)
[2021-11-27] MEDS: FINASTERIDE 5MG TABLET PO SCH (08:28)
[2021-11-27] MEDS: APIXABAN 2.5 MG TABLET PO SCH ×2 (08:28→16:37)
[2021-11-27 12:00] VITALS: BP 132/65
[2021-11-27] MEDS ORDERED: APIX2.5T MT (15:18)
[2021-11-27] MEDS ORDERED: FURO-151 MT (15:18)
[2021-11-27 15:51] VITALS: BP 122/64
[2021-11-27] MEDS: ACETAMINOPHEN 325MG TABLET PO PRN (16:37)
== END 2021-11-27 16:55 | disposition home or self-care (01) | DRG 682 ==
LOC: ER 12:22 → 7EST 14:02 → EDBEDREQ 14:05 → ENRESERV 14:12
PROVIDERS: ADMIT Internal Medicine; ATTEND Internal Medicine
DX: N17.9 Acute kidney failure, unspecified (principal); I50.23 Acute on chronic systolic (congestive) heart failure; I13.0 Hypertensive heart and chronic kidney disease with heart failure and stage 1 through stage 4 chronic kidney disease, or unspecified chronic kidney disease; I48.20 Chronic atrial fibrillation, unspecified; E44.1 Mild protein-calorie malnutrition; D68.9 Coagulation defect, unspecified; I42.0 Dilated cardiomyopathy; N18.4 Chronic kidney disease, stage 4 (severe); R06.03 Acute respiratory distress; I27.20 Pulmonary hypertension, unspecified; I27.81 Cor pulmonale (chronic); D64.9 Anemia, unspecified; D72.819 Decreased white blood cell count, unspecified; I27.29 Other secondary pulmonary hypertension; N40.0 Benign prostatic hyperplasia without lower urinary tract symptoms; Z96.659 Presence of unspecified artificial knee joint; E78.5 Hyperlipidemia, unspecified; K74.60 Unspecified cirrhosis of liver; Z79.899 Other long term (current) drug therapy; Z79.01 Long term (current) use of anticoagulants; Z90.49 Acquired absence of other specified parts of digestive tract; Z68.32 Body mass index [BMI] 32.0-32.9, adult; R00.1 Bradycardia, unspecified; K29.70 Gastritis, unspecified, without bleeding
CPT/HCPCS: 36415; 71045; 80048; 80053; 80061; 81003; 83735; 83880; 84132; 84153; 84443; 84484; 85025; 87077; 87186; 93005; 97161; 97166; 99285; J1650; J1940; G0103

== ENCOUNTER 2022-01-29 21:28 | Inpatient (IN) | payer OTHER ==
[~2022-01-29] VITALS: Ht 172.7 cm; Wt 94.4 kg
[~2022-01-29 21:28] MED LIST changes: +APIX2.5T MT; -METO10TA8 PO
[2022-01-30 01:42] LABS: BASOPHILS % 0.3 % (0.0-2.0); EOSINOPHILS % 0.2 % (0.0-5.0); HEMATOCRIT. 28.8 % (42.0-52.0); HEMOGLOBIN. 8.6 g/dL (14.0-18.0); LYMPHOCYTES % 7.8 % (20.0-50.0); MEAN CORPUSCULAR HEMOGLOBIN 23.8 pg (28.0-32.0); MEAN CORPUSCULAR VOLUME 79.7 fL (80.0-94.0); MEAN PLATELET VOLUME 6.3 fl (7.4-10.4); NEUTROPHILS % 86.7 % (40.0-76.0); PLATELET 239 x1000/uL (130-400); RED BLOOD CELL COUNT 3.61 mill/uL (4.7-6.1); RED CELL DISTRIBUTION WIDTH 21.6 % (11.6-14.6)
[2022-01-30 01:44] LABS: CHLORIDE 107 mEq/L (98-107)
[2022-01-30] MEDS ORDERED: ONDANSETRON HCL 4MG/2ML INJ IV STA (01:54)
[2022-01-30] MEDS ORDERED: MORPHINE SULFATE 4 MG/ML CPJ (NOT FOR IM USE) IV STA (01:54)
[2022-01-30] MEDS ORDERED: SODIUM CHLORIDE 0.9% 1,000 ML IV ONE (02:00)
[2022-01-30] MEDS ORDERED: FUROSEMIDE 20MG/2ML VIAL IVP ONE (03:15)
[2022-01-30 04:04] LABS: CLARITY URINE CLEAR (CLEAR); COLOR URINE YELLOW (YELLOW); KETONES URINE NEGATIVE (NEGATIVE); LEUKOCYTE ESTERASE URINE TRACE (NEGATIVE); NITRITE URINE NEGATIVE (NEGATIVE); OCCULT BLOOD URINE NEGATIVE (NEGATIVE); PROTEIN URINE 1+ (NEGATIVE); SPECIFIC GRAVITY URINE 1.012 (1.005-1.030); UROBILINOGEN URINE 0.2 E.U./dL (0.2-1.0)
[2022-01-30] MEDS ORDERED: METRONIDAZOLE 500 MG PREMIX 100 ML IV STA (04:15)
[2022-01-30] MEDS ORDERED: LEVOFLOXACIN 750MG PREMIX 150 ML IV STA (04:15)
[2022-01-30] MEDS ORDERED: NALOXONE HCL 0.4MG/ML VIAL IV PRN (06:00)
[2022-01-30] MEDS: MORPHINE SULFATE 2 MG/ML CPJ (NOT FOR IM USE) IV PRN ×2 (06:03→11:58)
[2022-01-30 12:00] VITALS: BP 158/86
[2022-01-30 12:45] VITALS: BP 172/90
[2022-01-30] MEDS ORDERED: ACETAMINOPHEN 325MG TABLET PO PRN (14:45)
[2022-01-30] MEDS ORDERED: LOSARTAN POTASSIUM 50 MG TABLET PO ONE (15:00)
[2022-01-30 15:36] VITALS: BP 151/87
[2022-01-30] MEDS: FUROSEMIDE 40MG/4ML VIAL IVP SCH (16:40)
[2022-01-30] MEDS: HYDROCODONE/ACETAMINOPHEN 5/325MG TABLET PO PRN ×2 (16:40→20:54)
[2022-01-30 20:00] VITALS: BP 161/102
[2022-01-30] MEDS ORDERED: IPRATROPIUM/ALBUTEROL 0.5-3(2.5)MG/3ML NEB HHN PRN (21:45)
[2022-01-30] MEDS ORDERED: GUAIFENESIN-DM 200MG-20MG/10ML UDC PO PRN (21:45)
[2022-01-30] MEDS: CARVEDILOL 12.5MG TABLET PO SCH (22:18)
[2022-01-30] MEDS: ONDANSETRON HCL 4MG/2ML INJ IV PRN (22:25)
[2022-01-31] VITALS (7 sets, daily range): BP systolic 137–156; BP diastolic 76–95
[2022-01-31] MEDS: HYDROCODONE/ACETAMINOPHEN 5/325MG TABLET PO PRN ×2 (01:00→20:50)
[2022-01-31 03:12] LABS: HEMATOCRIT. 31.7 % (42.0-52.0); HEMOGLOBIN. 9.6 g/dL (14.0-18.0); MEAN CORPUSCULAR VOLUME 78.7 fL (80.0-94.0); MEAN PLATELET VOLUME 6.7 fl (7.4-10.4); PLATELET 239 x1000/uL (130-400); RED BLOOD CELL COUNT 4.02 mill/uL (4.7-6.1); RED CELL DISTRIBUTION WIDTH 21.6 % (11.6-14.6)
[2022-01-31 03:18] LABS: INR 1.4; PROTHROMBIN TIME 14.5 sec (9.6-11.0)
[2022-01-31 05:56] LABS: NUCLEATED RED BLOOD CELLS 1 /100 WBC
[2022-01-31 05:57] LABS: PLATELET ESTIMATE NORMAL
[2022-01-31] MEDS: FUROSEMIDE 40MG/4ML VIAL IVP SCH ×3 (08:22→20:49)
[2022-01-31] MEDS: PANTOPRAZOLE SODIUM 40 MG/VIAL IV SCH (08:22)
[2022-01-31] MEDS: CARVEDILOL 12.5MG TABLET PO SCH ×2 (09:00→20:51)
[2022-01-31] MEDS ORDERED: LOSARTAN POTASSIUM 50 MG TABLET PO SCH (09:00)
[2022-01-31] MEDS ORDERED: SODIUM BICARBONATE 4% (2.4MEQ) 5ML VIAL IV ONE (10:24)
[2022-01-31] MEDS ORDERED: LIDOCAINE HCL/PF 1% 10 MG/ML 5ML VIAL ONE (10:24)
[2022-01-31 13:55] LABS: INR 1.4; PROTHROMBIN TIME 14.8 sec (9.6-11.0)
[2022-01-31 14:02] LABS: BASOPHILS % 0.2 % (0.0-2.0); HEMATOCRIT. 32.8 % (42.0-52.0); HEMOGLOBIN. 9.8 g/dL (14.0-18.0); LYMPHOCYTES % 10.4 % (20.0-50.0); MEAN CORPUSCULAR VOLUME 80.5 fL (80.0-94.0); MEAN PLATELET VOLUME 6.9 fl (7.4-10.4); MONOCYTES % 7.1 % (2.0-8.0); NEUTROPHILS % 82.3 % (40.0-76.0); PLATELET 226 x1000/uL (130-400); RED BLOOD CELL COUNT 4.08 mill/uL (4.7-6.1); RED CELL DISTRIBUTION WIDTH 22.2 % (11.6-14.6)
[2022-01-31] MEDS ORDERED: SODIUM POLYSTYRENE SULFONATE 15 G/60 ML BOT PO NR ×2 (20:00)
[2022-01-31] MEDS ORDERED: INSULIN REGULAR (HUMULIN R) 300UNITS/3ML VIAL IV NR (20:00)
[2022-01-31] MEDS ORDERED: DEXTROSE 50% WATER 50ML SYRINGE IV NR (20:00)
[2022-02-01] VITALS: BP_SYST 136; BP_SYST 144; BP_DIAS 73; BP_DIAS 88
[2022-02-01] MEDS: HYDROCODONE/ACETAMINOPHEN 5/325MG TABLET PO PRN ×3 (00:56→10:20)
[2022-02-01] MEDS: ONDANSETRON HCL 4MG/2ML INJ IV PRN ×2 (01:15→06:40)
[2022-02-01 04:00] VITALS: BP 159/98
[2022-02-01 06:59] LABS: BASOPHILS % 0.3 % (0.0-2.0); EOSINOPHILS % 0.1 % (0.0-5.0); HEMATOCRIT. 33.5 % (42.0-52.0); HEMOGLOBIN. 10.2 g/dL (14.0-18.0); LYMPHOCYTES % 12.1 % (20.0-50.0); MEAN CORPUSCULAR HEMOGLOBIN 24.1 pg (28.0-32.0); MEAN CORPUSCULAR VOLUME 78.8 fL (80.0-94.0); MEAN PLATELET VOLUME 7.1 fl (7.4-10.4); MONOCYTES % 7.7 % (2.0-8.0); NEUTROPHILS % 79.8 % (40.0-76.0); PLATELET 222 x1000/uL (130-400); RED BLOOD CELL COUNT 4.25 mill/uL (4.7-6.1)
[2022-02-01] MEDS ORDERED: SODIUM POLYSTYRENE SULFONATE 15 G/60 ML BOT PO NR ×2 (08:00→17:15)
[2022-02-01 08:03] VITALS: BP 154/95
[2022-02-01] MEDS: FUROSEMIDE 40MG/4ML VIAL IVP SCH (08:19)
[2022-02-01] MEDS: CARVEDILOL 12.5MG TABLET PO SCH ×2 (08:19→23:04)
[2022-02-01] MEDS: PANTOPRAZOLE SODIUM 40 MG/VIAL IV SCH (08:19)
[2022-02-01] MEDS ORDERED: CALCIUM GLUCONATE 1,000 MG in DEXT 5% WATER 90 ML IV STA (09:18)
[2022-02-01] MEDS ORDERED: INSULIN REGULAR (HUMULIN R) 300UNITS/3ML VIAL IV NR (09:18)
[2022-02-01] MEDS ORDERED: DEXTROSE 50% WATER 50ML SYRINGE IV NR (09:18)
[2022-02-01] MEDS ORDERED: SODIUM BICARBONATE 8.4% 1 MEQ/ML 50ML SYR IV NR (09:18)
[2022-02-01] MEDS: TAMSULOSIN HCL 0.4MG SR CAPSULE PO SCH (10:20)
[2022-02-01] MEDS ORDERED: CALCIUM GLUCONATE 1GM PREMIX 50 ML IV NR (11:00)
[2022-02-01 12:00] VITALS: BP 143/86
[2022-02-01 16:00] VITALS: BP 150/89
[2022-02-01] MEDS ORDERED: NALOXONE HCL 0.4MG/ML VIAL IV PRN (17:15)
[2022-02-01 20:00] VITALS: BP 137/80
[2022-02-02] VITALS: BP 117/84
[2022-02-02 04:00] VITALS: BP 111/69
[2022-02-02 06:43] LABS: BASOPHILS % 0.2 % (0.0-2.0); EOSINOPHILS % 0.1 % (0.0-5.0); HEMATOCRIT. 33.2 % (42.0-52.0); LYMPHOCYTES % 15.6 % (20.0-50.0); MEAN CORPUSCULAR HEMOGLOBIN 24.3 pg (28.0-32.0); MEAN CORPUSCULAR VOLUME 80.8 fL (80.0-94.0); MEAN PLATELET VOLUME 7.3 fl (7.4-10.4); MONOCYTES % 11.1 % (2.0-8.0); PLATELET 204 x1000/uL (130-400); RED BLOOD CELL COUNT 4.11 mill/uL (4.7-6.1); RED CELL DISTRIBUTION WIDTH 21.8 % (11.6-14.6)
[2022-02-02 08:00] VITALS: BP 107/63
[2022-02-02] MEDS: TAMSULOSIN HCL 0.4MG SR CAPSULE PO SCH (08:36)
[2022-02-02] MEDS: PANTOPRAZOLE SODIUM 40 MG/VIAL IV SCH (08:36)
[2022-02-02] MEDS: CARVEDILOL 12.5MG TABLET PO SCH ×2 (08:36→20:55)
[2022-02-02] MEDS ORDERED: ALBUTEROL (0.083%) 2.5MG/3ML NEB HHN NR (08:45)
[2022-02-02] MEDS ORDERED: SODIUM POLYSTYRENE SULFONATE 15 G/60 ML BOT PO NR (08:45)
[2022-02-02] MEDS: SODIUM CHLORIDE 0.9% 1,000 ML IV SCH (10:33)
[2022-02-02] MEDS: CITRIC ACID/SODIUM CITRATE SOLN 30ML UDC PO SCH ×3 (10:34→17:25)
[2022-02-02 12:00] VITALS: BP 101/60
[2022-02-02 16:00] VITALS: BP 123/60
[2022-02-02 20:27] VITALS: BP 122/62
[2022-02-03 00:27] VITALS: BP 114/67
[2022-02-03 04:00] VITALS: BP 127/67
[2022-02-03] MEDS: SODIUM CHLORIDE 0.9% 1,000 ML IV SCH (05:40)
[2022-02-03 06:59] LABS: BASOPHILS % 0.2 % (0.0-2.0); EOSINOPHILS % 0.5 % (0.0-5.0); HEMATOCRIT. 29.8 % (42.0-52.0); HEMOGLOBIN. 9.2 g/dL (14.0-18.0); MEAN CORPUSCULAR HEMOGLOBIN 24.3 pg (28.0-32.0); MEAN CORPUSCULAR VOLUME 78.4 fL (80.0-94.0); MEAN PLATELET VOLUME 7.4 fl (7.4-10.4); MONOCYTES % 10.8 % (2.0-8.0); NEUTROPHILS % 75.5 % (40.0-76.0); PLATELET 178 x1000/uL (130-400); RED CELL DISTRIBUTION WIDTH 21.8 % (11.6-14.6)
[2022-02-03 08:00] VITALS: BP 120/65
[2022-02-03] MEDS: CITRIC ACID/SODIUM CITRATE SOLN 30ML UDC PO SCH ×3 (08:56→17:00)
[2022-02-03] MEDS: TAMSULOSIN HCL 0.4MG SR CAPSULE PO SCH (08:57)
[2022-02-03] MEDS: PANTOPRAZOLE SODIUM 40 MG/VIAL IV SCH (08:57)
[2022-02-03] MEDS: CARVEDILOL 12.5MG TABLET PO SCH (08:57)
[2022-02-03 12:00] VITALS: BP 117/70
[2022-02-03 16:00] VITALS: BP 139/83
[2022-02-03] MEDS: HYDROCODONE/ACETAMINOPHEN 5/325MG TABLET PO PRN (18:33)
[2022-02-03 20:00] VITALS: BP 130/77
[2022-02-04] VITALS: BP 128/76
[2022-02-04 04:00] VITALS: BP 132/78
[2022-02-04 07:14] LABS: BASOPHILS % 0.2 % (0.0-2.0); EOSINOPHILS % 0.5 % (0.0-5.0); HEMATOCRIT. 28.3 % (42.0-52.0); HEMOGLOBIN. 8.7 g/dL (14.0-18.0); LYMPHOCYTES % 10.9 % (20.0-50.0); MEAN CORPUSCULAR HEMOGLOBIN 24.3 pg (28.0-32.0); MEAN CORPUSCULAR VOLUME 78.8 fL (80.0-94.0); MEAN PLATELET VOLUME 7.6 fl (7.4-10.4); MONOCYTES % 10.7 % (2.0-8.0); NEUTROPHILS % 77.7 % (40.0-76.0); PLATELET 159 x1000/uL (130-400); RED BLOOD CELL COUNT 3.59 mill/uL (4.7-6.1); RED CELL DISTRIBUTION WIDTH 21.4 % (11.6-14.6)
[2022-02-04 08:00] VITALS: BP 131/72
[2022-02-04] MEDS: PANTOPRAZOLE SODIUM 40 MG/VIAL IV SCH (08:47)
[2022-02-04] MEDS: CITRIC ACID/SODIUM CITRATE SOLN 30ML UDC PO SCH ×3 (08:47→17:31)
[2022-02-04] MEDS: TAMSULOSIN HCL 0.4MG SR CAPSULE PO SCH (08:47)
[2022-02-04] MEDS: FUROSEMIDE 40MG TABLET PO SCH ×2 (09:41→17:33)
[2022-02-04 12:00] VITALS: BP 125/67
[2022-02-04 16:00] VITALS: BP 143/79
[2022-02-04 20:00] VITALS: BP 138/78
[2022-02-04] MEDS: HYDROCODONE/ACETAMINOPHEN 5/325MG TABLET PO PRN (20:53)
[2022-02-05] VITALS: BP 139/75
[2022-02-05 04:00] VITALS: BP 132/72
[2022-02-05] MEDS: FUROSEMIDE 40MG TABLET PO SCH ×2 (05:13→17:27)
[2022-02-05 06:20] LABS: BASOPHILS % 0.2 % (0.0-2.0); EOSINOPHILS % 0.5 % (0.0-5.0); HEMATOCRIT. 28.3 % (42.0-52.0); HEMOGLOBIN. 8.7 g/dL (14.0-18.0); MEAN CORPUSCULAR HEMOGLOBIN 24.1 pg (28.0-32.0); MEAN CORPUSCULAR VOLUME 78.3 fL (80.0-94.0); MEAN PLATELET VOLUME 7.6 fl (7.4-10.4); MONOCYTES % 11.1 % (2.0-8.0); NEUTROPHILS % 74.2 % (40.0-76.0); PLATELET 158 x1000/uL (130-400); RED BLOOD CELL COUNT 3.62 mill/uL (4.7-6.1); RED CELL DISTRIBUTION WIDTH 21.7 % (11.6-14.6)
[2022-02-05 08:00] VITALS: BP 128/79
[2022-02-05] MEDS: TAMSULOSIN HCL 0.4MG SR CAPSULE PO SCH (09:31)
[2022-02-05] MEDS: PANTOPRAZOLE SODIUM 40 MG/VIAL IV SCH (09:31)
[2022-02-05 16:00] VITALS: BP 138/79
[2022-02-05 20:00] VITALS: BP 136/75
[2022-02-06] VITALS: BP 122/83
[2022-02-06] MEDS: HYDROCODONE/ACETAMINOPHEN 5/325MG TABLET PO PRN ×2 (03:16→14:10)
[2022-02-06 04:00] VITALS: BP 94/67
[2022-02-06] MEDS: FUROSEMIDE 40MG TABLET PO SCH (06:07)
[2022-02-06 06:15] LABS: BASOPHILS % 0.2 % (0.0-2.0); EOSINOPHILS % 0.9 % (0.0-5.0); HEMATOCRIT. 27.5 % (42.0-52.0); HEMOGLOBIN. 8.5 g/dL (14.0-18.0); LYMPHOCYTES % 13.7 % (20.0-50.0); MEAN CORPUSCULAR VOLUME 77.4 fL (80.0-94.0); MEAN PLATELET VOLUME 7.7 fl (7.4-10.4); MONOCYTES % 10.1 % (2.0-8.0); NEUTROPHILS % 75.1 % (40.0-76.0); PLATELET 169 x1000/uL (130-400); RED BLOOD CELL COUNT 3.55 mill/uL (4.7-6.1); RED CELL DISTRIBUTION WIDTH 22.7 % (11.6-14.6)
[2022-02-06 08:00] VITALS: BP 146/76
[2022-02-06] MEDS: PANTOPRAZOLE SODIUM 40 MG/VIAL IV SCH (09:04)
[2022-02-06] MEDS: TAMSULOSIN HCL 0.4MG SR CAPSULE PO SCH (09:05)
[2022-02-06 12:00] VITALS: BP 131/75
[2022-02-06 14:56] VITALS: BP 129/74
== END 2022-02-06 17:02 | disposition home or self-care (01) | DRG 432 ==
LOC: ER 21:28 → MICUSO 01-30 03:07 → 7WST 01-30 10:56
PROVIDERS: ADMIT Internal Medicine; ATTEND Internal Medicine
PROC: 0W9G3ZZ Drainage of Peritoneal Cavity, Percutaneous Approach (ICD-10-PCS; principal; 2022-01-31)
DX: K74.69 Other cirrhosis of liver (principal); I50.23 Acute on chronic systolic (congestive) heart failure; J96.20 Acute and chronic respiratory failure, unspecified whether with hypoxia or hypercapnia; R18.8 Other ascites; I13.0 Hypertensive heart and chronic kidney disease with heart failure and stage 1 through stage 4 chronic kidney disease, or unspecified chronic kidney disease; N17.9 Acute kidney failure, unspecified; N18.9 Chronic kidney disease, unspecified; I27.20 Pulmonary hypertension, unspecified; I25.10 Atherosclerotic heart disease of native coronary artery without angina pectoris; E87.5 Hyperkalemia; D64.9 Anemia, unspecified; R91.8 Other nonspecific abnormal finding of lung field; I48.91 Unspecified atrial fibrillation; Z20.822 Contact with and (suspected) exposure to COVID-19; K40.90 Unilateral inguinal hernia, without obstruction or gangrene, not specified as recurrent; Z96.659 Presence of unspecified artificial knee joint; Z86.16 Personal history of COVID-19; Z79.01 Long term (current) use of anticoagulants; Z79.899 Other long term (current) drug therapy; Z90.49 Acquired absence of other specified parts of digestive tract; N40.0 Benign prostatic hyperplasia without lower urinary tract symptoms
CPT/HCPCS: 36415; 49083; 71045; 74176; 76700; 80048; 80053; 81003; 83735; 83880; 84100; 84132; 84484; 85025; 87426; 93005; 97116; 97161; 97162; 99285; C1893; C9113; J0610; J1815; J1940; J1956; J2270; J2405; J3490; J7030

== ENCOUNTER 2022-03-24 21:27 | Inpatient (IN) | payer OTHER ==
[~2022-03-24] VITALS: Ht 172.7 cm; Wt 102.5 kg
[~2022-03-24 21:27] MED LIST changes: +CAPS60CR3 TP
[2022-03-24 23:30] LABS: CHLORIDE 107 mEq/L (98-107)
[2022-03-24 23:34] LABS: BASOPHILS % 0.6 % (0.0-2.0); EOSINOPHILS % 0.2 % (0.0-5.0); HEMATOCRIT. 29.9 % (42.0-52.0); HEMOGLOBIN. 8.9 g/dL (14.0-18.0); LYMPHOCYTES % 22.3 % (20.0-50.0); MEAN CORPUSCULAR HEMOGLOBIN 24.3 pg (28.0-32.0); MEAN CORPUSCULAR VOLUME 81.2 fL (80.0-94.0); MEAN PLATELET VOLUME 6.8 fl (7.4-10.4); MONOCYTES % 8.7 % (2.0-8.0); NEUTROPHILS % 68.2 % (40.0-76.0); PLATELET 198 x1000/uL (130-400); RED BLOOD CELL COUNT 3.68 mill/uL (4.7-6.1); RED CELL DISTRIBUTION WIDTH 21.7 % (11.6-14.6)
[2022-03-24 23:43] LABS: INR 1.6; PROTHROMBIN TIME 16.8 sec (9.6-11.0)
[2022-03-25] MEDS ORDERED: FUROSEMIDE 100MG/10ML VIAL IVP ONE (00:45)
[2022-03-25] MEDS ORDERED: LABETALOL HCL VIAL 20 MG/4 ML VIAL IV ONE (03:30)
[2022-03-25 05:20] VITALS: BP 152/91
[2022-03-25] MEDS ORDERED: FURO80TA87 MT (05:55)
[2022-03-25 08:00] VITALS: BP 151/94
[2022-03-25 08:08] VITALS: BP 151/94
[2022-03-25 08:14] LABS: BASOPHILS % 0.5 % (0.0-2.0); EOSINOPHILS % 0.3 % (0.0-5.0); HEMATOCRIT. 29.6 % (42.0-52.0); LYMPHOCYTES % 21.3 % (20.0-50.0); MEAN CORPUSCULAR HEMOGLOBIN 24.8 pg (28.0-32.0); MEAN CORPUSCULAR VOLUME 81.5 fL (80.0-94.0); MEAN PLATELET VOLUME 6.9 fl (7.4-10.4); MONOCYTES % 11.7 % (2.0-8.0); NEUTROPHILS % 66.2 % (40.0-76.0); PLATELET 195 x1000/uL (130-400); RED BLOOD CELL COUNT 3.64 mill/uL (4.7-6.1); RED CELL DISTRIBUTION WIDTH 21.8 % (11.6-14.6)
[2022-03-25] MEDS ORDERED: LOSARTAN POTASSIUM 50 MG TABLET PO SCH (09:00)
[2022-03-25] MEDS ORDERED: CARVEDILOL 3.125 MG TABLET PO SCH ×2 (09:00→17:00)
[2022-03-25] MEDS: FUROSEMIDE 40MG/4ML VIAL IVP SCH ×3 (09:35→20:55)
[2022-03-25 09:50] LABS: CREATINE KINASE 46 IU/L (39-308)
[2022-03-25 13:37] VITALS: BP 143/79
[2022-03-25] MEDS: TAMSULOSIN HCL 0.4MG SR CAPSULE PO SCH (14:13)
[2022-03-25] MEDS: APIXABAN 2.5 MG TABLET PO SCH ×2 (14:14→18:14)
[2022-03-25] MEDS: ISOSORBIDE MONONITRATE 60MG TABLET SR 24HR PO SCH (14:14)
[2022-03-25] MEDS: ATORVASTATIN CALCIUM 40MG TABLET PO SCH (14:15)
[2022-03-25] MEDS: NIFEDIPINE XL 30MG TAB PO SCH (14:15)
[2022-03-25] MEDS: FINASTERIDE 5MG TABLET PEG SCH (14:15)
[2022-03-25] MEDS: SILDENAFIL CITRATE 20MG TABLET PO SCH ×2 (14:16→18:14)
[2022-03-25 16:00] VITALS: BP 145/94
[2022-03-25 20:00] VITALS: BP 119/78
[2022-03-26] VITALS: BP 120/60
[2022-03-26 04:00] VITALS: BP 96/62
[2022-03-26] MEDS: FUROSEMIDE 40MG/4ML VIAL IVP SCH ×3 (05:14→21:56)
[2022-03-26 07:43] LABS: HEMATOCRIT. 25.2 % (42.0-52.0); HEMOGLOBIN. 7.7 g/dL (14.0-18.0); MEAN CORPUSCULAR HEMOGLOBIN 24.6 pg (28.0-32.0); MEAN CORPUSCULAR VOLUME 80.5 fL (80.0-94.0); RED BLOOD CELL COUNT 3.13 mill/uL (4.7-6.1); RED CELL DISTRIBUTION WIDTH 21.3 % (11.6-14.6)
[2022-03-26 08:03] LABS: PHOSPHORUS 3.7 mg/dL (2.5-4.9)
[2022-03-26 08:05] VITALS: BP 95/51
[2022-03-26] MEDS: NIFEDIPINE XL 30MG TAB PO SCH (08:12)
[2022-03-26] MEDS: ISOSORBIDE MONONITRATE 60MG TABLET SR 24HR PO SCH (08:12)
[2022-03-26] MEDS: SILDENAFIL CITRATE 20MG TABLET PO SCH ×3 (08:13→16:41)
[2022-03-26] MEDS: TAMSULOSIN HCL 0.4MG SR CAPSULE PO SCH (08:14)
[2022-03-26] MEDS: APIXABAN 2.5 MG TABLET PO SCH (08:43)
[2022-03-26] MEDS: FINASTERIDE 5MG TABLET PEG SCH (09:22)
[2022-03-26] MEDS: METOLAZONE 5MG TABLET PO SCH (09:22)
[2022-03-26] MEDS: ATORVASTATIN CALCIUM 40MG TABLET PO SCH (09:22)
[2022-03-26] MEDS ORDERED: NALOXONE HCL 0.4MG/ML VIAL IV PRN (11:30)
[2022-03-26 11:57] VITALS: BP 111/62
[2022-03-26] MEDS: GABAPENTIN 100MG CAPSULE PO SCH ×2 (12:44→16:41)
[2022-03-26 14:40] LABS: NUCLEATED RED BLOOD CELLS 1 /100 WBC
[2022-03-26 14:41] LABS: PLATELET ESTIMATE NORMAL
[2022-03-26 14:42] LABS: MEAN PLATELET VOLUME 6.8 fl (7.4-10.4); PLATELET 184 x1000/uL (130-400)
[2022-03-26] MEDS: HYDROCODONE/ACETAMINOPHEN 5/325MG TABLET PO PRN ×2 (15:39→22:48)
[2022-03-26] MEDS ORDERED: CHOL400D7 PO (16:14)
[2022-03-26] MEDS ORDERED: FURO40TA5 PO (16:14)
[2022-03-26] MEDS ORDERED: ISOS60TA76 PO (16:15)
[2022-03-26] MEDS ORDERED: NIFE-33 PO (16:16)
[2022-03-26] MEDS ORDERED: POTA-205 PO (16:17)
[2022-03-26 16:18] VITALS: BP 119/62
[2022-03-26] MEDS ORDERED: METO2.5T2 PO (16:19)
[2022-03-26] MEDS ORDERED: SACU1TAB PO (16:20)
[2022-03-26 20:00] VITALS: BP 109/61
[2022-03-26] MEDS: EPOETIN ALFA-EPBX 4,000 UNIT/ML VIAL SUBCUT SCH (21:58)
[2022-03-27] VITALS: BP 117/63
[2022-03-27 04:00] VITALS: BP 125/61
[2022-03-27] MEDS: FUROSEMIDE 40MG/4ML VIAL IVP SCH ×3 (06:43→22:11)
[2022-03-27 07:37] LABS: BASOPHILS % 0.6 % (0.0-2.0); EOSINOPHILS % 2.5 % (0.0-5.0); HEMATOCRIT. 24.8 % (42.0-52.0); HEMOGLOBIN. 7.5 g/dL (14.0-18.0); MEAN CORPUSCULAR HEMOGLOBIN 24.7 pg (28.0-32.0); MEAN CORPUSCULAR VOLUME 81.6 fL (80.0-94.0); MEAN PLATELET VOLUME 6.7 fl (7.4-10.4); MONOCYTES % 10.7 % (2.0-8.0); NEUTROPHILS % 68.2 % (40.0-76.0); PLATELET 176 x1000/uL (130-400); RED BLOOD CELL COUNT 3.04 mill/uL (4.7-6.1); RED CELL DISTRIBUTION WIDTH 21.9 % (11.6-14.6)
[2022-03-27 08:00] VITALS: BP 121/65
[2022-03-27] MEDS ORDERED: SODIUM BICARBONATE 4% (2.4MEQ) 5ML VIAL IV ONE (08:01)
[2022-03-27] MEDS ORDERED: LIDOCAINE HCL/PF 1% 10 MG/ML 5ML VIAL ONE (08:01)
[2022-03-27] MEDS: TAMSULOSIN HCL 0.4MG SR CAPSULE PO SCH (08:31)
[2022-03-27] MEDS: ATORVASTATIN CALCIUM 40MG TABLET PO SCH (08:31)
[2022-03-27] MEDS: GABAPENTIN 100MG CAPSULE PO SCH ×3 (08:31→18:42)
[2022-03-27] MEDS: ISOSORBIDE MONONITRATE 60MG TABLET SR 24HR PO SCH (08:32)
[2022-03-27] MEDS: FINASTERIDE 5MG TABLET PEG SCH (08:32)
[2022-03-27] MEDS: METOLAZONE 5MG TABLET PO SCH (08:32)
[2022-03-27] MEDS: SILDENAFIL CITRATE 20MG TABLET PO SCH ×3 (08:32→18:46)
[2022-03-27] MEDS: NIFEDIPINE XL 30MG TAB PO SCH (08:32)
[2022-03-27] MEDS ORDERED: POTASSIUM CHLORIDE 20MEQ TABLET SR PO ONE (09:30)
[2022-03-27] MEDS: HYDROCODONE/ACETAMINOPHEN 5/325MG TABLET PO PRN ×3 (10:04→22:19)
[2022-03-27 12:00] VITALS: BP 107/65
[2022-03-27 16:00] VITALS: BP 118/60
[2022-03-27 20:00] VITALS: BP 112/65
[2022-03-28] VITALS (7 sets, daily range): BP systolic 104–153; BP diastolic 52–66
[2022-03-28] MEDS: HYDROCODONE/ACETAMINOPHEN 5/325MG TABLET PO PRN ×3 (05:23→22:15)
[2022-03-28] MEDS: FUROSEMIDE 40MG/4ML VIAL IVP SCH ×3 (06:30→22:01)
[2022-03-28 07:39] LABS: PHOSPHORUS 3.9 mg/dL (2.5-4.9)
[2022-03-28 08:18] LABS: BASOPHILS % 0.7 % (0.0-2.0); HEMATOCRIT. 23.9 % (42.0-52.0); HEMOGLOBIN. 7.1 g/dL (14.0-18.0); LYMPHOCYTES % 18.6 % (20.0-50.0); MEAN CORPUSCULAR HEMOGLOBIN 24.3 pg (28.0-32.0); MEAN CORPUSCULAR VOLUME 81.5 fL (80.0-94.0); MEAN PLATELET VOLUME 6.9 fl (7.4-10.4); MONOCYTES % 11.9 % (2.0-8.0); NEUTROPHILS % 65.8 % (40.0-76.0); PLATELET 172 x1000/uL (130-400); RED BLOOD CELL COUNT 2.93 mill/uL (4.7-6.1); RED CELL DISTRIBUTION WIDTH 22.2 % (11.6-14.6)
[2022-03-28] MEDS: METOLAZONE 5MG TABLET PO SCH (08:20)
[2022-03-28] MEDS: TAMSULOSIN HCL 0.4MG SR CAPSULE PO SCH (08:20)
[2022-03-28] MEDS: ISOSORBIDE MONONITRATE 60MG TABLET SR 24HR PO SCH (08:21)
[2022-03-28] MEDS: GABAPENTIN 100MG CAPSULE PO SCH ×3 (08:21→17:18)
[2022-03-28] MEDS: FINASTERIDE 5MG TABLET PEG SCH (08:21)
[2022-03-28] MEDS: NIFEDIPINE XL 30MG TAB PO SCH (08:21)
[2022-03-28] MEDS: SILDENAFIL CITRATE 20MG TABLET PO SCH ×3 (08:22→17:21)
[2022-03-28] MEDS: ATORVASTATIN CALCIUM 40MG TABLET PO SCH (08:22)
[2022-03-28 16:10] LABS: EOSINOPHILS % 2.9 % (0.0-5.0); LYMPHOCYTES % 20.2 % (20.0-50.0); MEAN CORPUSCULAR HEMOGLOBIN 24.5 pg (28.0-32.0); MEAN CORPUSCULAR VOLUME 80.9 fL (80.0-94.0); MEAN PLATELET VOLUME 6.5 fl (7.4-10.4); MONOCYTES % 11.4 % (2.0-8.0); NEUTROPHILS % 64.5 % (40.0-76.0); PLATELET 176 x1000/uL (130-400); RED BLOOD CELL COUNT 2.85 mill/uL (4.7-6.1); RED CELL DISTRIBUTION WIDTH 21.3 % (11.6-14.6)
[2022-03-28] MEDS: EPOETIN ALFA-EPBX 4,000 UNIT/ML VIAL SUBCUT SCH (22:01)
[2022-03-29] VITALS (8 sets, daily range): BP systolic 112–135; BP diastolic 58–84
[2022-03-29] MEDS: FUROSEMIDE 40MG/4ML VIAL IVP SCH ×2 (05:14→13:14)
[2022-03-29 08:56] LABS: BASOPHILS % 0.6 % (0.0-2.0); EOSINOPHILS % 2.2 % (0.0-5.0); HEMATOCRIT. 26.8 % (42.0-52.0); HEMOGLOBIN. 8.2 g/dL (14.0-18.0); LYMPHOCYTES % 15.2 % (20.0-50.0); MEAN CORPUSCULAR HEMOGLOBIN 24.4 pg (28.0-32.0); MEAN CORPUSCULAR VOLUME 80.1 fL (80.0-94.0); MEAN PLATELET VOLUME 6.8 fl (7.4-10.4); MONOCYTES % 10.7 % (2.0-8.0); NEUTROPHILS % 71.3 % (40.0-76.0); PLATELET 176 x1000/uL (130-400); RED BLOOD CELL COUNT 3.34 mill/uL (4.7-6.1); RED CELL DISTRIBUTION WIDTH 21.3 % (11.6-14.6)
[2022-03-29] MEDS: NIFEDIPINE XL 30MG TAB PO SCH (09:08)
[2022-03-29] MEDS: FINASTERIDE 5MG TABLET PEG SCH (09:08)
[2022-03-29] MEDS: ATORVASTATIN CALCIUM 40MG TABLET PO SCH (09:08)
[2022-03-29] MEDS: ISOSORBIDE MONONITRATE 60MG TABLET SR 24HR PO SCH (09:08)
[2022-03-29] MEDS: GABAPENTIN 100MG CAPSULE PO SCH ×2 (09:08→13:14)
[2022-03-29] MEDS: METOLAZONE 5MG TABLET PO SCH (09:08)
[2022-03-29] MEDS: TAMSULOSIN HCL 0.4MG SR CAPSULE PO SCH (09:08)
[2022-03-29] MEDS: SILDENAFIL CITRATE 20MG TABLET PO SCH ×2 (09:09→13:14)
[2022-03-29] MEDS ORDERED: POTASSIUM CHLORIDE 20MEQ TABLET SR PO NR (09:45)
[2022-03-29] MEDS: HYDROCODONE/ACETAMINOPHEN 5/325MG TABLET PO PRN (10:12)
[2022-03-29] MEDS ORDERED: POTA-205 MT (14:32)
[2022-03-29] MEDS ORDERED: REV20 PO (14:32)
[2022-03-29] MEDS ORDERED: FURO40TA5 PO (14:32)
[2022-03-29] MEDS ORDERED: METO5TAB7 MT (14:33)
[2022-03-30] MEDS ORDERED: FUROSEMIDE 40MG/4ML VIAL IVP SCH (09:00)
[2022-03-30] MEDS ORDERED: AMLODIPINE 5MG TABLET PO SCH (10:00)
== END 2022-03-29 17:36 | disposition home or self-care (01) | DRG 291 ==
LOC: ER 21:27 → 6WST 03-25 01:03 → ENRESERV 03-25 04:19
PROVIDERS: ADMIT Internal Medicine; ATTEND Internal Medicine
PROC: 30233N1 Transfusion of Nonautologous Red Blood Cells into Peripheral Vein, Percutaneous Approach (ICD-10-PCS; principal; 2022-03-28)
DX: I13.0 Hypertensive heart and chronic kidney disease with heart failure and stage 1 through stage 4 chronic kidney disease, or unspecified chronic kidney disease (principal); I50.23 Acute on chronic systolic (congestive) heart failure; I48.20 Chronic atrial fibrillation, unspecified; N17.9 Acute kidney failure, unspecified; R18.8 Other ascites; I42.0 Dilated cardiomyopathy; N18.9 Chronic kidney disease, unspecified; Z20.822 Contact with and (suspected) exposure to COVID-19; D72.819 Decreased white blood cell count, unspecified; E87.5 Hyperkalemia; N40.0 Benign prostatic hyperplasia without lower urinary tract symptoms; D63.1 Anemia in chronic kidney disease; I27.20 Pulmonary hypertension, unspecified; E78.5 Hyperlipidemia, unspecified; E11.22 Type 2 diabetes mellitus with diabetic chronic kidney disease; K74.60 Unspecified cirrhosis of liver; I27.81 Cor pulmonale (chronic); I25.10 Atherosclerotic heart disease of native coronary artery without angina pectoris; Z96.659 Presence of unspecified artificial knee joint; Z90.49 Acquired absence of other specified parts of digestive tract
CPT/HCPCS: 36415; 71045; 76705; 76770; 80048; 80053; 82550; 83735; 83880; 84100; 84153; 84484; 85025; 86850; 86900; 86920; 87426; 93005; 93970; 99285; J0885; J1940; J3490; P9016; G0103

== ENCOUNTER 2022-04-17 22:39 | Inpatient (IN) | payer OTHER ==
[~2022-04-17] VITALS: Ht 172.7 cm; Wt 103.4 kg
[~2022-04-17 22:39] MED LIST changes: -CAPS60CR3 TP; -FURO-151 MT; +FURO40TA5 PO; -ISOS60TA76 MT; +ISOS60TA76 PO; +METO5TAB7 MT; +POTA-205 MT; +POTA-205 PO; -POTA15TA11 MT; +REV20 PO; +SACU1TAB PO; -SILD20TA PO
[2022-04-18] MEDS ORDERED: FUROSEMIDE 40MG/4ML VIAL IV ONE (00:45)
[2022-04-18 01:00] LABS: CHLORIDE 102 mEq/L (98-107)
[2022-04-18 01:29] LABS: BASOPHILS % 1.1 % (0.0-2.0); EOSINOPHILS % 0.3 % (0.0-5.0); HEMATOCRIT. 32.9 % (42.0-52.0); LYMPHOCYTES % 25.3 % (20.0-50.0); MEAN CORPUSCULAR HEMOGLOBIN 23.9 pg (28.0-32.0); MEAN PLATELET VOLUME 6.9 fl (7.4-10.4); MONOCYTES % 12.5 % (2.0-8.0); NEUTROPHILS % 60.8 % (40.0-76.0); PLATELET 265 x1000/uL (130-400); RED BLOOD CELL COUNT 4.16 mill/uL (4.7-6.1); RED CELL DISTRIBUTION WIDTH 20.4 % (11.6-14.6)
[2022-04-18] MEDS ORDERED: HYDROCODONE/ACETAMINOPHEN 5/325MG TABLET PO ONE (04:00)
[2022-04-18 09:42] VITALS: BP 139/91
[2022-04-18] MEDS ORDERED: CARVEDILOL 3.125 MG TABLET PO SCH (11:00)
[2022-04-18] MEDS ORDERED: FUROSEMIDE 40MG/4ML VIAL IVP SCH (11:00)
[2022-04-18] MEDS ORDERED: NIFEDIPINE XL 30MG TAB PO SCH (11:00)
[2022-04-18] MEDS ORDERED: IPRATROPIUM/ALBUTEROL 0.5-3(2.5)MG/3ML NEB HHN PRN (11:00)
[2022-04-18] MEDS ORDERED: ACETAMINOPHEN 325MG TABLET PO PRN (11:00)
[2022-04-18 12:00] VITALS: BP 137/68
[2022-04-18] MEDS: FINASTERIDE 5MG TABLET PO SCH (13:12)
[2022-04-18] MEDS: TAMSULOSIN HCL 0.4MG SR CAPSULE PO SCH (13:12)
[2022-04-18] MEDS: APIXABAN 2.5 MG TABLET PO SCH ×2 (13:12→17:18)
[2022-04-18] MEDS: SILDENAFIL CITRATE 20MG TABLET PO SCH ×2 (13:12→22:33)
[2022-04-18] MEDS: ISOSORBIDE MONONITRATE 60MG TABLET SR 24HR PO SCH ×2 (13:13→17:18)
[2022-04-18 16:00] VITALS: BP 133/64
[2022-04-18 16:27] LABS: CLARITY URINE CLEAR (CLEAR); COLOR URINE YELLOW (YELLOW); KETONES URINE NEGATIVE (NEGATIVE); LEUKOCYTE ESTERASE URINE TRACE (NEGATIVE); NITRITE URINE NEGATIVE (NEGATIVE); OCCULT BLOOD URINE 1+ (NEGATIVE); PROTEIN URINE TRACE (NEGATIVE); SPECIFIC GRAVITY URINE 1.011 (1.005-1.030); UROBILINOGEN URINE 0.2 E.U./dL (0.2-1.0)
[2022-04-18] MEDS: FUROSEMIDE 40MG/4ML VIAL IVP SCH (17:17)
[2022-04-18] MEDS: HYDROCODONE/ACETAMINOPHEN 5/325MG TABLET PO PRN (17:18)
[2022-04-18] MEDS ORDERED: NALOXONE HCL 0.4MG/ML VIAL IV PRN (17:30)
[2022-04-18] MEDS: AMLODIPINE 2.5MG TABLET PO SCH (18:30)
[2022-04-18 20:00] VITALS: BP 121/65
[2022-04-18] MEDS: ATORVASTATIN CALCIUM 40MG TABLET PO SCH (22:32)
[2022-04-19] VITALS: BP 133/71
[2022-04-19 00:08] LABS: CREATINE KINASE MB FRACTION 2.3 ng/mL (0.5-3.6)
[2022-04-19 04:00] VITALS: BP 134/74
[2022-04-19] MEDS: AMLODIPINE 2.5MG TABLET PO SCH ×2 (05:43→17:02)
[2022-04-19] MEDS: SILDENAFIL CITRATE 20MG TABLET PO SCH ×3 (05:44→21:06)
[2022-04-19 07:39] LABS: BASOPHILS % 0.7 % (0.0-2.0); EOSINOPHILS % 1.7 % (0.0-5.0); HEMATOCRIT. 26.4 % (42.0-52.0); HEMOGLOBIN. 8.1 g/dL (14.0-18.0); LYMPHOCYTES % 23.7 % (20.0-50.0); MEAN CORPUSCULAR HEMOGLOBIN 24.3 pg (28.0-32.0); MEAN CORPUSCULAR VOLUME 79.8 fL (80.0-94.0); MEAN PLATELET VOLUME 6.8 fl (7.4-10.4); MONOCYTES % 13.3 % (2.0-8.0); NEUTROPHILS % 60.6 % (40.0-76.0); PLATELET 203 x1000/uL (130-400); RED BLOOD CELL COUNT 3.32 mill/uL (4.7-6.1); RED CELL DISTRIBUTION WIDTH 20.3 % (11.6-14.6)
[2022-04-19 08:01] VITALS: BP 128/62
[2022-04-19] MEDS: METOLAZONE 2.5MG TABLET PO SCH (09:06)
[2022-04-19] MEDS: ISOSORBIDE MONONITRATE 60MG TABLET SR 24HR PO SCH ×2 (09:06→17:07)
[2022-04-19] MEDS: APIXABAN 2.5 MG TABLET PO SCH ×2 (09:07→17:08)
[2022-04-19] MEDS: TAMSULOSIN HCL 0.4MG SR CAPSULE PO SCH (09:07)
[2022-04-19] MEDS: FINASTERIDE 5MG TABLET PO SCH (09:07)
[2022-04-19] MEDS: HYDROCODONE/ACETAMINOPHEN 5/325MG TABLET PO PRN ×2 (09:40→17:08)
[2022-04-19] MEDS: FUROSEMIDE 40MG/4ML VIAL IVP SCH ×2 (09:40→17:08)
[2022-04-19 11:50] VITALS: BP 116/64
[2022-04-19 16:00] VITALS: BP 109/56
[2022-04-19 20:00] VITALS: BP 98/62
[2022-04-19] MEDS: ATORVASTATIN CALCIUM 40MG TABLET PO SCH (21:05)
[2022-04-20] VITALS: BP 125/63
[2022-04-20] MEDS: HYDROCODONE/ACETAMINOPHEN 5/325MG TABLET PO PRN ×4 (02:15→22:49)
[2022-04-20 04:00] VITALS: BP 131/60
[2022-04-20] MEDS: SILDENAFIL CITRATE 20MG TABLET PO SCH ×3 (05:11→21:12)
[2022-04-20] MEDS: AMLODIPINE 2.5MG TABLET PO SCH ×2 (05:11→17:47)
[2022-04-20 08:00] VITALS: BP 115/61
[2022-04-20 08:12] LABS: BASOPHILS % 0.6 % (0.0-2.0); EOSINOPHILS % 2.1 % (0.0-5.0); HEMATOCRIT. 24.8 % (42.0-52.0); HEMOGLOBIN. 7.7 g/dL (14.0-18.0); LYMPHOCYTES % 23.7 % (20.0-50.0); MEAN CORPUSCULAR HEMOGLOBIN 24.3 pg (28.0-32.0); MEAN CORPUSCULAR VOLUME 78.8 fL (80.0-94.0); MEAN PLATELET VOLUME 7.3 fl (7.4-10.4); MONOCYTES % 13.7 % (2.0-8.0); NEUTROPHILS % 59.9 % (40.0-76.0); PLATELET 216 x1000/uL (130-400); RED BLOOD CELL COUNT 3.15 mill/uL (4.7-6.1); RED CELL DISTRIBUTION WIDTH 20.2 % (11.6-14.6)
[2022-04-20] MEDS: FINASTERIDE 5MG TABLET PO SCH (10:00)
[2022-04-20] MEDS: ISOSORBIDE MONONITRATE 60MG TABLET SR 24HR PO SCH ×2 (10:00→17:46)
[2022-04-20] MEDS: APIXABAN 2.5 MG TABLET PO SCH (10:00)
[2022-04-20] MEDS: TAMSULOSIN HCL 0.4MG SR CAPSULE PO SCH (10:00)
[2022-04-20] MEDS: METOLAZONE 2.5MG TABLET PO SCH (10:01)
[2022-04-20] MEDS: FUROSEMIDE 40MG/4ML VIAL IVP SCH ×2 (10:17→17:17)
[2022-04-20] MEDS: IRON SUCROSE COMPLEX 100 MG/5 ML ML IV SCH (10:17)
[2022-04-20 11:16] LABS: TOTAL IRON BINDING CAPACITY 338 ug/dL (250-450)
[2022-04-20 12:00] VITALS: BP 127/58
[2022-04-20] MEDS: PANTOPRAZOLE SODIUM 40 MG/VIAL IV SCH (17:17)
[2022-04-20 17:44] VITALS: BP 139/62
[2022-04-20 18:55] LABS: HEMATOCRIT 25.9 % (42.0-52.0); HEMOGLOBIN 7.9 g/dL (14.0-18.0)
[2022-04-20 20:00] VITALS: BP 128/64
[2022-04-20] MEDS: ATORVASTATIN CALCIUM 40MG TABLET PO SCH (21:12)
[2022-04-21] VITALS: BP 114/68
[2022-04-21 02:20] LABS: HEMATOCRIT 24.7 % (42.0-52.0); HEMOGLOBIN 7.6 g/dL (14.0-18.0)
[2022-04-21 04:15] VITALS: BP 136/67
[2022-04-21] MEDS: PANTOPRAZOLE SODIUM 40 MG/VIAL IV SCH ×2 (05:41→16:30)
[2022-04-21] MEDS: SILDENAFIL CITRATE 20MG TABLET PO SCH ×3 (05:41→21:49)
[2022-04-21] MEDS: AMLODIPINE 2.5MG TABLET PO SCH ×2 (05:41→17:46)
[2022-04-21] MEDS: HYDROCODONE/ACETAMINOPHEN 5/325MG TABLET PO PRN ×2 (07:26→16:31)
[2022-04-21 07:45] VITALS: BP 115/62
[2022-04-21 08:16] LABS: HEMOGLOBIN. 7.6 g/dL (14.0-18.0); LYMPHOCYTES % 27.1 % (20.0-50.0); MEAN CORPUSCULAR HEMOGLOBIN 25.1 pg (28.0-32.0); MEAN CORPUSCULAR VOLUME 79.7 fL (80.0-94.0); MEAN PLATELET VOLUME 7.4 fl (7.4-10.4); MONOCYTES % 11.6 % (2.0-8.0); NEUTROPHILS % 58.3 % (40.0-76.0); PLATELET 203 x1000/uL (130-400); RED BLOOD CELL COUNT 3.01 mill/uL (4.7-6.1); RED CELL DISTRIBUTION WIDTH 20.2 % (11.6-14.6)
[2022-04-21] MEDS: ISOSORBIDE MONONITRATE 60MG TABLET SR 24HR PO SCH (09:00)
[2022-04-21] MEDS: TAMSULOSIN HCL 0.4MG SR CAPSULE PO SCH (09:31)
[2022-04-21] MEDS: IRON SUCROSE COMPLEX 100 MG/5 ML ML IV SCH (09:31)
[2022-04-21] MEDS: POTASSIUM CHLORIDE 20MEQ TABLET SR PO SCH (09:31)
[2022-04-21] MEDS: METOLAZONE 2.5MG TABLET PO SCH (09:31)
[2022-04-21] MEDS: FINASTERIDE 5MG TABLET PO SCH (09:31)
[2022-04-21] MEDS: FUROSEMIDE 40MG/4ML VIAL IVP SCH ×2 (10:17→16:30)
[2022-04-21 11:37] VITALS: BP 108/63
[2022-04-21 13:29] LABS: HEMATOCRIT 23.7 % (42.0-52.0); HEMOGLOBIN 7.6 g/dL (14.0-18.0)
[2022-04-21 16:20] VITALS: BP 121/65
[2022-04-21] MEDS: MAGNESIUM OXIDE 400MG TABLET PO SCH (16:30)
[2022-04-21 20:00] VITALS: BP 119/73
[2022-04-21] MEDS: ATORVASTATIN CALCIUM 40MG TABLET PO SCH (21:49)
[2022-04-22] VITALS: BP 122/71
[2022-04-22 04:00] VITALS: BP 133/61
[2022-04-22] MEDS: PANTOPRAZOLE SODIUM 40 MG/VIAL IV SCH ×2 (05:24→17:22)
[2022-04-22] MEDS: AMLODIPINE 2.5MG TABLET PO SCH ×2 (05:24→17:33)
[2022-04-22] MEDS: SILDENAFIL CITRATE 20MG TABLET PO SCH ×3 (05:24→22:26)
[2022-04-22] MEDS: HYDROCODONE/ACETAMINOPHEN 5/325MG TABLET PO PRN ×2 (05:24→15:34)
[2022-04-22 07:59] VITALS: BP 115/56
[2022-04-22 08:13] LABS: BASOPHILS % 0.5 % (0.0-2.0); EOSINOPHILS % 1.6 % (0.0-5.0); HEMATOCRIT. 24.8 % (42.0-52.0); LYMPHOCYTES % 22.4 % (20.0-50.0); MEAN CORPUSCULAR HEMOGLOBIN 25.3 pg (28.0-32.0); MEAN PLATELET VOLUME 6.9 fl (7.4-10.4); MONOCYTES % 13.3 % (2.0-8.0); NEUTROPHILS % 62.2 % (40.0-76.0); PLATELET 192 x1000/uL (130-400); RED BLOOD CELL COUNT 3.14 mill/uL (4.7-6.1); RED CELL DISTRIBUTION WIDTH 20.1 % (11.6-14.6)
[2022-04-22] MEDS: MAGNESIUM OXIDE 400MG TABLET PO SCH (09:06)
[2022-04-22] MEDS: TAMSULOSIN HCL 0.4MG SR CAPSULE PO SCH (09:06)
[2022-04-22] MEDS: FUROSEMIDE 40MG/4ML VIAL IVP SCH ×2 (09:06→17:22)
[2022-04-22] MEDS: POTASSIUM CHLORIDE 20MEQ TABLET SR PO SCH (09:06)
[2022-04-22] MEDS: FINASTERIDE 5MG TABLET PO SCH (09:06)
[2022-04-22] MEDS: METOLAZONE 2.5MG TABLET PO SCH (09:06)
[2022-04-22 11:56] VITALS: BP 115/61
[2022-04-22] MEDS: IRON SUCROSE COMPLEX 100 MG/5 ML ML IV SCH (13:02)
[2022-04-22] MEDS ORDERED: KCL 20MEQ/100ML PREMIX 100 ML IV SCH (15:00)
[2022-04-22 16:29] VITALS: BP 121/68
[2022-04-22 20:00] VITALS: BP 126/63
[2022-04-22] MEDS: ATORVASTATIN CALCIUM 40MG TABLET PO SCH (22:26)
[2022-04-23] VITALS: BP 130/81
[2022-04-23] MEDS: HYDROCODONE/ACETAMINOPHEN 5/325MG TABLET PO PRN (00:26)
[2022-04-23 03:35] LABS: INR 1.5; PROTHROMBIN TIME 15.2 sec (9.6-11.0)
[2022-04-23 04:00] VITALS: BP 122/65
[2022-04-23] MEDS: SILDENAFIL CITRATE 20MG TABLET PO SCH ×3 (06:00→20:26)
[2022-04-23] MEDS: AMLODIPINE 2.5MG TABLET PO SCH ×2 (06:00→18:42)
[2022-04-23] MEDS ORDERED: MORPHINE SULFATE 2 MG/ML CPJ (NOT FOR IM USE) IV NR (06:15)
[2022-04-23] MEDS: PANTOPRAZOLE SODIUM 40 MG/VIAL IV SCH ×2 (06:24→18:51)
[2022-04-23 07:53] LABS: BASOPHILS % 0.7 % (0.0-2.0); EOSINOPHILS % 1.6 % (0.0-5.0); HEMATOCRIT. 26.6 % (42.0-52.0); HEMOGLOBIN. 8.2 g/dL (14.0-18.0); LYMPHOCYTES % 19.2 % (20.0-50.0); MEAN CORPUSCULAR HEMOGLOBIN 24.5 pg (28.0-32.0); MEAN CORPUSCULAR VOLUME 79.3 fL (80.0-94.0); MEAN PLATELET VOLUME 7.2 fl (7.4-10.4); MONOCYTES % 14.4 % (2.0-8.0); NEUTROPHILS % 64.1 % (40.0-76.0); PLATELET 190 x1000/uL (130-400); RED BLOOD CELL COUNT 3.36 mill/uL (4.7-6.1)
[2022-04-23 08:00] VITALS: BP 125/62
[2022-04-23] MEDS: METOLAZONE 2.5MG TABLET PO SCH (08:30)
[2022-04-23] MEDS: FUROSEMIDE 40MG/4ML VIAL IVP SCH ×2 (09:00→18:42)
[2022-04-23] MEDS: POTASSIUM CHLORIDE 20MEQ TABLET SR PO SCH (09:00)
[2022-04-23] MEDS: FINASTERIDE 5MG TABLET PO SCH (09:00)
[2022-04-23] MEDS: TAMSULOSIN HCL 0.4MG SR CAPSULE PO SCH (09:00)
[2022-04-23] MEDS: MAGNESIUM OXIDE 400MG TABLET PO SCH (09:00)
[2022-04-23] MEDS ORDERED: MIDAZOLAM HCL 2 MG/2 ML VIAL ONE (11:24)
[2022-04-23] MEDS ORDERED: PROPOFOL 200MG/20ML VIAL IV ONE ×2 (11:25→11:52)
[2022-04-23] MEDS ORDERED: LIDOCAINE HCL 1% 10 MG/ML 10ML VIAL ONE (11:25)
[2022-04-23] MEDS ORDERED: METO2.5T2 PO (15:56)
[2022-04-23 16:00] VITALS: BP 128/62
[2022-04-23 20:00] VITALS: BP 126/64
[2022-04-23] MEDS: ATORVASTATIN CALCIUM 40MG TABLET PO SCH (20:26)
[2022-04-24 04:00] VITALS: BP 128/78
[2022-04-24] MEDS: SILDENAFIL CITRATE 20MG TABLET PO SCH ×2 (04:46→14:14)
[2022-04-24] MEDS: AMLODIPINE 2.5MG TABLET PO SCH (04:47)
[2022-04-24] MEDS: PANTOPRAZOLE SODIUM 40 MG/VIAL IV SCH (04:47)
[2022-04-24 07:27] LABS: BASOPHILS % 0.5 % (0.0-2.0); EOSINOPHILS % 1.1 % (0.0-5.0); HEMATOCRIT. 26.7 % (42.0-52.0); HEMOGLOBIN. 8.4 g/dL (14.0-18.0); LYMPHOCYTES % 21.9 % (20.0-50.0); MEAN CORPUSCULAR HEMOGLOBIN 24.8 pg (28.0-32.0); MEAN CORPUSCULAR VOLUME 79.1 fL (80.0-94.0); MEAN PLATELET VOLUME 6.9 fl (7.4-10.4); NEUTROPHILS % 65.5 % (40.0-76.0); PLATELET 189 x1000/uL (130-400); RED BLOOD CELL COUNT 3.37 mill/uL (4.7-6.1); RED CELL DISTRIBUTION WIDTH 20.7 % (11.6-14.6)
[2022-04-24 08:00] VITALS: BP 115/56
[2022-04-24] MEDS: MAGNESIUM OXIDE 400MG TABLET PO SCH (08:23)
[2022-04-24] MEDS: FINASTERIDE 5MG TABLET PO SCH (08:23)
[2022-04-24] MEDS: POTASSIUM CHLORIDE 20MEQ TABLET SR PO SCH (08:23)
[2022-04-24] MEDS: TAMSULOSIN HCL 0.4MG SR CAPSULE PO SCH (08:23)
[2022-04-24] MEDS: FUROSEMIDE 40MG/4ML VIAL IVP SCH (08:23)
[2022-04-24] MEDS: METOLAZONE 2.5MG TABLET PO SCH (08:23)
[2022-04-24] MEDS ORDERED: HYDROCODONE/ACETAMINOPHEN 5/325MG TABLET PO PRN (11:00)
[2022-04-24] MEDS ORDERED: HYDROCODONE/ACETAMINOPHEN 5/325MG TABLET PO NR (11:00)
[2022-04-24] MEDS ORDERED: LACTULOSE 20G/30ML UDC PO NR (11:30)
[2022-04-24 12:00] VITALS: BP 128/61
[2022-04-24 13:54] VITALS: BP 126/72
[2022-04-24] MEDS ORDERED: POTASSIUM CHLORIDE 10MEQ TABLET SR PO NR (15:15)
[2022-04-24] MEDS ORDERED: NALOXONE HCL 0.4MG/ML VIAL IV PRN (15:15)
[2022-04-24] MEDS ORDERED: BISACODYL 10MG SUPP PR NR (15:15)
== END 2022-04-24 17:47 | disposition home or self-care (01) | DRG 291 ==
LOC: ER 22:39 → 6WST 04-18 04:41 → EDBEDREQTM 04-18 04:47 → EDBEDREQ 04-18 04:47 → ENRESERV 04-18 06:19
PROVIDERS: ADMIT Internal Medicine; ATTEND Internal Medicine
PROC: 0DJ08ZZ Inspection of Upper Intestinal Tract, Via Natural or Artificial Opening Endoscopic (ICD-10-PCS; principal; 2022-04-23)
DX: I13.0 Hypertensive heart and chronic kidney disease with heart failure and stage 1 through stage 4 chronic kidney disease, or unspecified chronic kidney disease (principal); I50.23 Acute on chronic systolic (congestive) heart failure; N17.9 Acute kidney failure, unspecified; I48.19 Other persistent atrial fibrillation; R18.8 Other ascites; I42.9 Cardiomyopathy, unspecified; Z20.822 Contact with and (suspected) exposure to COVID-19; N18.9 Chronic kidney disease, unspecified; I27.20 Pulmonary hypertension, unspecified; E78.5 Hyperlipidemia, unspecified; N40.0 Benign prostatic hyperplasia without lower urinary tract symptoms; D63.8 Anemia in other chronic diseases classified elsewhere; E80.6 Other disorders of bilirubin metabolism; I45.10 Unspecified right bundle-branch block; E83.42 Hypomagnesemia; D72.819 Decreased white blood cell count, unspecified; I34.0 Nonrheumatic mitral (valve) insufficiency; K74.60 Unspecified cirrhosis of liver; Z79.01 Long term (current) use of anticoagulants; Z79.899 Other long term (current) drug therapy; Z96.659 Presence of unspecified artificial knee joint; Z90.49 Acquired absence of other specified parts of digestive tract
CPT/HCPCS: 36415; 71045; 76770; 80048; 80053; 81003; 82550; 82553; 82607; 82728; 82746; 83540; 83550; 83735; 83880; 84100; 84443; 84484; 85014; 85018; 85025; 85044; 87426; 93005; 93970; 97166; 99285; C9113; J1940; J2250; J2270; J2704; J3480; J3490

== ENCOUNTER 2022-05-27 14:29 | Inpatient (IN) | payer OTHER ==
[~2022-05-27] VITALS: Ht 167.6 cm; Wt 96.7 kg
[~2022-05-27 14:29] MED LIST changes: +METO2.5T2 PO
[2022-05-27] MEDS ORDERED: FUROSEMIDE 100MG/10ML VIAL IVP NR (19:15)
[2022-05-27 19:27] LABS: BASOPHILS % 0.3 % (0.0-2.0); EOSINOPHILS % 1.7 % (0.0-5.0); HEMATOCRIT. 28.6 % (42.0-52.0); HEMOGLOBIN. 8.8 g/dL (14.0-18.0); LYMPHOCYTES % 14.4 % (20.0-50.0); MEAN CORPUSCULAR HEMOGLOBIN 25.4 pg (28.0-32.0); MEAN CORPUSCULAR VOLUME 82.4 fL (80.0-94.0); MEAN PLATELET VOLUME 6.9 fl (7.4-10.4); MONOCYTES % 10.5 % (2.0-8.0); NEUTROPHILS % 73.1 % (40.0-76.0); PLATELET 159 x1000/uL (130-400); RED BLOOD CELL COUNT 3.47 mill/uL (4.7-6.1); RED CELL DISTRIBUTION WIDTH 24.6 % (11.6-14.6)
[2022-05-27 19:41] LABS: CHLORIDE 100 mEq/L (98-107)
[2022-05-27 19:47] LABS: PLATELET ESTIMATE NORMAL
[2022-05-28 02:30] VITALS: BP 121/74
[2022-05-28] MEDS ORDERED: ACETAMINOPHEN 325MG TABLET PO PRN (04:30)
[2022-05-28] MEDS: FUROSEMIDE 40MG/4ML VIAL IVP SCH ×3 (06:06→21:15)
[2022-05-28] MEDS: OMEPRAZOLE 20MG CAPSULE EXTENDED RELEASE PO SCH (06:56)
[2022-05-28 08:00] VITALS: BP 131/64
[2022-05-28] MEDS: METOLAZONE 2.5MG TABLET PO SCH (08:45)
[2022-05-28] MEDS: ISOSORBIDE MONONITRATE 60MG TABLET SR 24HR PO SCH ×2 (08:46→21:16)
[2022-05-28] MEDS: TAMSULOSIN HCL 0.4MG SR CAPSULE PO SCH (08:46)
[2022-05-28] MEDS: CHOLECALCIFEROL (D3) 1000 UNIT TABLET PO SCH (08:46)
[2022-05-28] MEDS: FINASTERIDE 5MG TABLET PO SCH (08:46)
[2022-05-28] MEDS: ATORVASTATIN CALCIUM 40MG TABLET PO SCH (08:46)
[2022-05-28] MEDS: NIFEDIPINE XL 30MG TAB PO SCH ×2 (08:46→21:15)
[2022-05-28] MEDS: CARVEDILOL 3.125 MG TABLET PO SCH (08:47)
[2022-05-28] MEDS: POTASSIUM CHLORIDE 20MEQ TABLET SR PO SCH ×2 (08:47→16:49)
[2022-05-28] MEDS ORDERED: METOLAZONE MT SCH (09:00)
[2022-05-28] MEDS ORDERED: CHOLECALCIFEROL 2000 UNIT PO SCH (09:00)
[2022-05-28] MEDS ORDERED: APIXABAN 2.5 MG TABLET PO SCH (09:00)
[2022-05-28] MEDS ORDERED: MEDICATION NOT ON FORMULARY EA (Omeprazole 40 MG) PO SCH (09:00)
[2022-05-28 12:00] VITALS: BP 128/74
[2022-05-28 15:31] LABS: CLARITY URINE CLEAR (CLEAR); COLOR URINE YELLOW (YELLOW); KETONES URINE NEGATIVE (NEGATIVE); LEUKOCYTE ESTERASE URINE NEGATIVE (NEGATIVE); NITRITE URINE NEGATIVE (NEGATIVE); OCCULT BLOOD URINE NEGATIVE (NEGATIVE); PROTEIN URINE NEGATIVE (NEGATIVE); SPECIFIC GRAVITY URINE 1.007 (1.005-1.030); UROBILINOGEN URINE 0.2 E.U./dL (0.2-1.0)
[2022-05-28 16:00] VITALS: BP 132/72
[2022-05-28] MEDS: ENOXAPARIN 40MG/0.4ML SYR SUBCUT SCH (16:50)
[2022-05-28] MEDS ORDERED: NALOXONE HCL 0.4MG/ML VIAL IV PRN (18:00)
[2022-05-28] MEDS: HYDROCODONE/ACETAMINOPHEN 5/325MG TABLET PO PRN (18:09)
[2022-05-28] MEDS ORDERED: ACYC15OI7 TP (18:40)
[2022-05-28 20:37] VITALS: BP 122/67
[2022-05-29] VITALS (7 sets, daily range): BP systolic 109–143; BP diastolic 55–66
[2022-05-29] MEDS: HYDROCODONE/ACETAMINOPHEN 5/325MG TABLET PO PRN ×3 (00:33→22:58)
[2022-05-29] MEDS: FUROSEMIDE 40MG/4ML VIAL IVP SCH ×3 (05:26→21:40)
[2022-05-29] MEDS: OMEPRAZOLE 20MG CAPSULE EXTENDED RELEASE PO SCH (06:41)
[2022-05-29 07:00] LABS: BASOPHILS % 0.3 % (0.0-2.0); EOSINOPHILS % 1.5 % (0.0-5.0); HEMATOCRIT. 26.7 % (42.0-52.0); HEMOGLOBIN. 8.3 g/dL (14.0-18.0); LYMPHOCYTES % 22.7 % (20.0-50.0); MEAN CORPUSCULAR HEMOGLOBIN 25.7 pg (28.0-32.0); MEAN CORPUSCULAR VOLUME 82.6 fL (80.0-94.0); MEAN PLATELET VOLUME 6.9 fl (7.4-10.4); MONOCYTES % 11.7 % (2.0-8.0); NEUTROPHILS % 63.8 % (40.0-76.0); PLATELET 151 x1000/uL (130-400); RED BLOOD CELL COUNT 3.24 mill/uL (4.7-6.1); RED CELL DISTRIBUTION WIDTH 24.6 % (11.6-14.6)
[2022-05-29] MEDS: CHOLECALCIFEROL (D3) 1000 UNIT TABLET PO SCH (08:17)
[2022-05-29] MEDS: FINASTERIDE 5MG TABLET PO SCH (08:18)
[2022-05-29] MEDS: METOLAZONE 2.5MG TABLET PO SCH (08:18)
[2022-05-29] MEDS: POTASSIUM CHLORIDE 20MEQ TABLET SR PO SCH ×2 (08:18→17:19)
[2022-05-29] MEDS: ISOSORBIDE MONONITRATE 60MG TABLET SR 24HR PO SCH (08:18)
[2022-05-29] MEDS: NIFEDIPINE XL 30MG TAB PO SCH ×2 (08:19→21:40)
[2022-05-29] MEDS: ATORVASTATIN CALCIUM 40MG TABLET PO SCH (08:19)
[2022-05-29] MEDS: TAMSULOSIN HCL 0.4MG SR CAPSULE PO SCH (08:19)
[2022-05-29] MEDS: ENOXAPARIN 40MG/0.4ML SYR SUBCUT SCH (17:18)
[2022-05-30 04:00] VITALS: BP 124/62
[2022-05-30] MEDS: FUROSEMIDE 40MG/4ML VIAL IVP SCH ×3 (06:31→20:25)
[2022-05-30 08:30] VITALS: BP 118/63
[2022-05-30] MEDS: CHOLECALCIFEROL (D3) 1000 UNIT TABLET PO SCH (09:15)
[2022-05-30] MEDS: SILDENAFIL CITRATE 20MG TABLET PO SCH ×3 (09:15→17:25)
[2022-05-30] MEDS: METOLAZONE 2.5MG TABLET PO SCH (09:16)
[2022-05-30] MEDS: NIFEDIPINE XL 30MG TAB PO SCH ×2 (09:16→20:23)
[2022-05-30] MEDS: TAMSULOSIN HCL 0.4MG SR CAPSULE PO SCH (09:16)
[2022-05-30] MEDS: POTASSIUM CHLORIDE 20MEQ TABLET SR PO SCH ×2 (09:16→17:25)
[2022-05-30] MEDS: ATORVASTATIN CALCIUM 40MG TABLET PO SCH (09:16)
[2022-05-30] MEDS: FAMOTIDINE 20MG TABLET PO SCH (09:16)
[2022-05-30] MEDS: FINASTERIDE 5MG TABLET PO SCH (09:18)
[2022-05-30] MEDS: HYDROCODONE/ACETAMINOPHEN 5/325MG TABLET PO PRN (11:21)
[2022-05-30 16:00] VITALS: BP 122/66
[2022-05-30 16:06] LABS: INR 1.4; PROTHROMBIN TIME 14.9 sec (9.6-11.0)
[2022-05-30 20:00] VITALS: BP 118/64
[2022-05-30] MEDS: CARVEDILOL 3.125 MG TABLET PO SCH (20:23)
[2022-05-31 00:05] VITALS: BP 114/54
[2022-05-31 04:00] VITALS: BP 116/61
[2022-05-31] MEDS: FUROSEMIDE 40MG/4ML VIAL IVP SCH ×3 (05:22→20:41)
[2022-05-31 08:00] VITALS: BP 128/66
[2022-05-31] MEDS ORDERED: SODIUM BICARBONATE 4% (2.4MEQ) 5ML VIAL IV ONE (08:35)
[2022-05-31] MEDS ORDERED: LIDOCAINE HCL 1% 10 MG/ML 10ML VIAL ONE (08:35)
[2022-05-31] MEDS: SILDENAFIL CITRATE 20MG TABLET PO SCH ×3 (09:00→16:59)
[2022-05-31] MEDS: HYDROCODONE/ACETAMINOPHEN 5/325MG TABLET PO PRN (11:31)
[2022-05-31] MEDS: METOLAZONE 5MG TABLET PO SCH (11:31)
[2022-05-31] MEDS: CHOLECALCIFEROL (D3) 1000 UNIT TABLET PO SCH (11:31)
[2022-05-31] MEDS: CARVEDILOL 3.125 MG TABLET PO SCH ×2 (11:32→20:41)
[2022-05-31] MEDS: NIFEDIPINE XL 30MG TAB PO SCH ×2 (11:32→20:41)
[2022-05-31] MEDS: POTASSIUM CHLORIDE 20MEQ TABLET SR PO SCH ×2 (11:32→16:59)
[2022-05-31] MEDS: ATORVASTATIN CALCIUM 40MG TABLET PO SCH (11:32)
[2022-05-31] MEDS: FAMOTIDINE 20MG TABLET PO SCH (11:32)
[2022-05-31] MEDS: TAMSULOSIN HCL 0.4MG SR CAPSULE PO SCH (11:33)
[2022-05-31] MEDS: FINASTERIDE 5MG TABLET PO SCH (11:33)
[2022-05-31 12:00] VITALS: BP 133/60
[2022-05-31 16:00] VITALS: BP 116/59
[2022-05-31 20:00] VITALS: BP 101/48
[2022-06-01 00:05] VITALS: BP 114/73
[2022-06-01 01:13] LABS: BASOPHILS % 0.1 % (0.0-2.0); EOSINOPHILS % 0.1 % (0.0-5.0); HEMATOCRIT. 30.1 % (42.0-52.0); HEMOGLOBIN. 9.5 g/dL (14.0-18.0); LYMPHOCYTES % 12.3 % (20.0-50.0); MEAN CORPUSCULAR HEMOGLOBIN 25.9 pg (28.0-32.0); MEAN PLATELET VOLUME 6.9 fl (7.4-10.4); MONOCYTES % 5.2 % (2.0-8.0); NEUTROPHILS % 82.3 % (40.0-76.0); PLATELET 154 x1000/uL (130-400); RED BLOOD CELL COUNT 3.68 mill/uL (4.7-6.1); RED CELL DISTRIBUTION WIDTH 24.8 % (11.6-14.6)
[2022-06-01 04:00] VITALS: BP 113/69
[2022-06-01] MEDS: FUROSEMIDE 40MG/4ML VIAL IVP SCH ×3 (05:32→20:57)
[2022-06-01 08:00] VITALS: BP 112/81
[2022-06-01 08:27] LABS: BASOPHILS % 0.1 % (0.0-2.0); EOSINOPHILS % 0.2 % (0.0-5.0); HEMATOCRIT. 29.7 % (42.0-52.0); HEMOGLOBIN. 9.5 g/dL (14.0-18.0); LYMPHOCYTES % 12.7 % (20.0-50.0); MEAN CORPUSCULAR HEMOGLOBIN 26.1 pg (28.0-32.0); MEAN CORPUSCULAR VOLUME 81.7 fL (80.0-94.0); MEAN PLATELET VOLUME 6.9 fl (7.4-10.4); PLATELET 159 x1000/uL (130-400); RED BLOOD CELL COUNT 3.63 mill/uL (4.7-6.1); RED CELL DISTRIBUTION WIDTH 24.9 % (11.6-14.6)
[2022-06-01] MEDS: FAMOTIDINE 20MG TABLET PO SCH (08:34)
[2022-06-01] MEDS: TAMSULOSIN HCL 0.4MG SR CAPSULE PO SCH (08:34)
[2022-06-01] MEDS: NIFEDIPINE XL 30MG TAB PO SCH ×2 (08:34→21:00)
[2022-06-01] MEDS: POTASSIUM CHLORIDE 20MEQ TABLET SR PO SCH ×2 (08:34→17:01)
[2022-06-01] MEDS: SILDENAFIL CITRATE 20MG TABLET PO SCH ×3 (08:34→17:01)
[2022-06-01] MEDS: ATORVASTATIN CALCIUM 40MG TABLET PO SCH (08:34)
[2022-06-01] MEDS: CARVEDILOL 3.125 MG TABLET PO SCH ×2 (08:34→20:56)
[2022-06-01] MEDS: CHOLECALCIFEROL (D3) 1000 UNIT TABLET PO SCH (08:35)
[2022-06-01] MEDS: METOLAZONE 5MG TABLET PO SCH (08:57)
[2022-06-01] MEDS: FINASTERIDE 5MG TABLET PO SCH (08:57)
[2022-06-01] MEDS ORDERED: POTASSIUM CHLORIDE 20MEQ TABLET SR PO NR (10:30)
[2022-06-01 12:00] VITALS: BP 114/61
[2022-06-01 16:00] VITALS: BP 101/51
[2022-06-01] MEDS: GUAIFENESIN/DM 600MG/30MG ER TAB 12HR PO SCH ×2 (17:01→20:56)
[2022-06-01] MEDS: APIXABAN 2.5 MG TABLET PO SCH (17:02)
[2022-06-01 20:01] VITALS: BP 115/56
[2022-06-01 23:02] LABS: PHOSPHORUS 2.4 mg/dL (2.5-4.9)
[2022-06-02 00:05] VITALS: BP 110/54
[2022-06-02 04:00] VITALS: BP 110/59
[2022-06-02] MEDS: FUROSEMIDE 40MG/4ML VIAL IVP SCH (05:54)
[2022-06-02 06:43] LABS: BASOPHILS % 0.2 % (0.0-2.0); EOSINOPHILS % 0.6 % (0.0-5.0); HEMATOCRIT. 29.2 % (42.0-52.0); HEMOGLOBIN. 9.2 g/dL (14.0-18.0); LYMPHOCYTES % 12.1 % (20.0-50.0); MEAN CORPUSCULAR HEMOGLOBIN 26.2 pg (28.0-32.0); MEAN CORPUSCULAR VOLUME 83.5 fL (80.0-94.0); MEAN PLATELET VOLUME 6.9 fl (7.4-10.4); MONOCYTES % 7.5 % (2.0-8.0); NEUTROPHILS % 79.6 % (40.0-76.0); PLATELET 161 x1000/uL (130-400); RED BLOOD CELL COUNT 3.49 mill/uL (4.7-6.1); RED CELL DISTRIBUTION WIDTH 24.3 % (11.6-14.6)
[2022-06-02 08:00] VITALS: BP 106/58
[2022-06-02] MEDS: METOLAZONE 5MG TABLET PO SCH (08:30)
[2022-06-02] MEDS: CARVEDILOL 3.125 MG TABLET PO SCH (08:47)
[2022-06-02] MEDS: POTASSIUM CHLORIDE 20MEQ TABLET SR PO SCH (08:49)
[2022-06-02] MEDS: FINASTERIDE 5MG TABLET PO SCH (08:49)
[2022-06-02] MEDS: TAMSULOSIN HCL 0.4MG SR CAPSULE PO SCH (08:49)
[2022-06-02] MEDS: GUAIFENESIN/DM 600MG/30MG ER TAB 12HR PO SCH (08:49)
[2022-06-02] MEDS: CHOLECALCIFEROL (D3) 1000 UNIT TABLET PO SCH (08:49)
[2022-06-02] MEDS: FAMOTIDINE 20MG TABLET PO SCH (08:50)
[2022-06-02] MEDS: APIXABAN 2.5 MG TABLET PO SCH (08:50)
[2022-06-02] MEDS: NIFEDIPINE XL 30MG TAB PO SCH (08:50)
[2022-06-02] MEDS: ATORVASTATIN CALCIUM 40MG TABLET PO SCH (08:51)
[2022-06-02] MEDS: SILDENAFIL CITRATE 20MG TABLET PO SCH ×2 (08:51→13:55)
[2022-06-02 12:00] VITALS: BP 118/60
[2022-06-02 13:32] VITALS: BP 118/60
[2022-06-02] MEDS ORDERED: FUROSEMIDE 40MG TABLET PO SCH (14:00)
[2022-06-02] MEDS ORDERED: POTASSIUM CHLORIDE 20MEQ TABLET SR PO NR (14:30)
== END 2022-06-02 06:55 | disposition home or self-care (01) | DRG 291 ==
LOC: ER 14:29 → MICUSO 23:15 → 7WST 05-28 02:29
PROVIDERS: ADMIT Internal Medicine; ATTEND Internal Medicine
PROC: 0W9G3ZZ Drainage of Peritoneal Cavity, Percutaneous Approach (ICD-10-PCS; principal; 2022-05-31)
DX: I13.0 Hypertensive heart and chronic kidney disease with heart failure and stage 1 through stage 4 chronic kidney disease, or unspecified chronic kidney disease (principal); I50.23 Acute on chronic systolic (congestive) heart failure; N17.9 Acute kidney failure, unspecified; I48.20 Chronic atrial fibrillation, unspecified; R18.8 Other ascites; E87.3 Alkalosis; I42.0 Dilated cardiomyopathy; I27.29 Other secondary pulmonary hypertension; E11.22 Type 2 diabetes mellitus with diabetic chronic kidney disease; D72.819 Decreased white blood cell count, unspecified; K74.60 Unspecified cirrhosis of liver; I34.0 Nonrheumatic mitral (valve) insufficiency; I70.90 Unspecified atherosclerosis; D63.8 Anemia in other chronic diseases classified elsewhere; N18.30 Chronic kidney disease, stage 3 unspecified; E87.6 Hypokalemia; Z20.822 Contact with and (suspected) exposure to COVID-19; Z96.659 Presence of unspecified artificial knee joint; T50.2X5A Adverse effect of carbonic-anhydrase inhibitors, benzothiadiazides and other diuretics, initial encounter; Y92.89 Other specified places as the place of occurrence of the external cause
CPT/HCPCS: 36415; 49083; 71045; 76705; 80048; 80053; 81003; 83735; 83880; 84100; 84484; 85025; 87426; 93005; 97162; 99285; J1650; J1940; J3490

== ENCOUNTER 2022-07-28 00:28 | Inpatient (IN) | payer OTHER ==
[~2022-07-28] VITALS: Ht 172.7 cm; Wt 89.8 kg
[~2022-07-28 00:28] MED LIST changes: +ACYC15OI7 TP; -CARV3.1242 MT; +CHOL100062 PO; -CHOL400D7 PO; -FINA5TAB11 MT; -METO5TAB7 MT; -POTA-205 PO; +REV20 MT; -REV20 PO; -SACU1TAB PO
[2022-07-28] MEDS ORDERED: FUROSEMIDE 40MG/4ML VIAL IV ONE (02:30)
[2022-07-28 02:44] LABS: BASOPHILS % 0.6 % (0.0-2.0); EOSINOPHILS % 0.9 % (0.0-5.0); HEMATOCRIT. 30.4 % (42.0-52.0); HEMOGLOBIN. 9.7 g/dL (14.0-18.0); LYMPHOCYTES % 19.2 % (20.0-50.0); MEAN CORPUSCULAR HEMOGLOBIN 26.6 pg (28.0-32.0); MEAN CORPUSCULAR VOLUME 83.8 fL (80.0-94.0); MEAN PLATELET VOLUME 6.6 fl (7.4-10.4); MONOCYTES % 12.1 % (2.0-8.0); NEUTROPHILS % 67.2 % (40.0-76.0); PLATELET 218 x1000/uL (130-400); RED BLOOD CELL COUNT 3.63 mill/uL (4.7-6.1); RED CELL DISTRIBUTION WIDTH 20.7 % (11.6-14.6)
[2022-07-28 02:56] LABS: CHLORIDE 105 mEq/L (98-107)
[2022-07-28] MEDS ORDERED: METOLAZONE 2.5MG TABLET PO SCH (09:00)
[2022-07-28] MEDS: FUROSEMIDE 40MG/4ML VIAL IVP SCH ×2 (11:33→18:08)
[2022-07-28] MEDS: METOLAZONE 5MG TABLET PO SCH ×2 (11:33→18:57)
[2022-07-28] MEDS ORDERED: ENOXAPARIN 30MG/0.3ML SYR SUBCUT SCH (15:00)
[2022-07-28 22:35] VITALS: BP 148/85
[2022-07-28 22:36] VITALS: BP 148/85
[2022-07-28] MEDS ORDERED: HYDROCODONE/ACETAMINOPHEN 5/325MG TABLET PO PRN (23:45)
[2022-07-28] MEDS ORDERED: ACETAMINOPHEN 650MG/20.3ML UDC PO PRN (23:45)
[2022-07-28] MEDS ORDERED: IPRATROPIUM/ALBUTEROL 0.5-3(2.5)MG/3ML NEB HHN PRN (23:45)
[2022-07-28] MEDS ORDERED: TEMAZEPAM 15MG CAPSULE PO PRN (23:45)
[2022-07-28] MEDS ORDERED: POTASSIUM CHLORIDE 20MEQ TABLET SR PO NR (23:45)
[2022-07-28] MEDS ORDERED: CLONIDINE 0.1MG TABLET PO PRN (23:45)
[2022-07-29] VITALS: BP 149/79
[2022-07-29 04:00] VITALS: BP 150/95
[2022-07-29] MEDS: FUROSEMIDE 40MG/4ML VIAL IVP SCH ×3 (05:23→20:33)
[2022-07-29 08:00] VITALS: BP 152/82
[2022-07-29] MEDS ORDERED: METOLAZONE 2.5MG TABLET PO SCH (08:30)
[2022-07-29] MEDS: NIFEDIPINE XL 30MG TAB PO SCH ×2 (08:53→17:32)
[2022-07-29] MEDS: POTASSIUM CHLORIDE 20MEQ TABLET SR PO SCH (08:54)
[2022-07-29] MEDS: SILDENAFIL CITRATE 20MG TABLET PO SCH ×2 (08:54→17:34)
[2022-07-29] MEDS: CHOLECALCIFEROL (D3) 1000 UNIT TABLET PO SCH (08:54)
[2022-07-29] MEDS: ISOSORBIDE DINITRATE 30MG TABLET PO SCH ×2 (08:54→17:31)
[2022-07-29] MEDS: ASPIRIN 81MG TABLET PO SCH (08:54)
[2022-07-29] MEDS: PANTOPRAZOLE SODIUM 40 MG/VIAL IV SCH (08:55)
[2022-07-29] MEDS: APIXABAN 2.5 MG TABLET PO SCH ×2 (08:55→17:34)
[2022-07-29] MEDS: TAMSULOSIN HCL 0.4MG SR CAPSULE PO SCH (08:55)
[2022-07-29] MEDS: METOLAZONE 5MG TABLET PO SCH ×2 (08:55→17:44)
[2022-07-29] MEDS: ATORVASTATIN CALCIUM 40MG TABLET PO SCH (08:55)
[2022-07-29 10:42] LABS: BASOPHILS % 0.4 % (0.0-2.0); EOSINOPHILS % 1.4 % (0.0-5.0); HEMOGLOBIN. 9.8 g/dL (14.0-18.0); MEAN CORPUSCULAR HEMOGLOBIN 26.9 pg (28.0-32.0); MEAN PLATELET VOLUME 7.1 fl (7.4-10.4); MONOCYTES % 9.9 % (2.0-8.0); NEUTROPHILS % 68.3 % (40.0-76.0); PLATELET 216 x1000/uL (130-400); RED BLOOD CELL COUNT 3.62 mill/uL (4.7-6.1); RED CELL DISTRIBUTION WIDTH 20.6 % (11.6-14.6)
[2022-07-29 10:55] LABS: MEAN CORPUSCULAR VOLUME 85.6 fL (80.0-94.0)
[2022-07-29 12:00] VITALS: BP 130/73
[2022-07-29 16:00] VITALS: BP 113/67
[2022-07-29 20:00] VITALS: BP 113/65
[2022-07-29] MEDS ORDERED: INFLUENZA VACCINE 05/PF 0.5 ML SYRINGE IM ONE (21:00)
[2022-07-29] MEDS ORDERED: NALOXONE HCL 0.4MG/ML VIAL IV PRN (21:45)
[2022-07-30 00:01] VITALS: BP 118/58
[2022-07-30 04:00] VITALS: BP 100/55
[2022-07-30] MEDS: FUROSEMIDE 40MG/4ML VIAL IVP SCH ×2 (05:37→13:36)
[2022-07-30 08:00] VITALS: BP 113/59
[2022-07-30] MEDS ORDERED: METOLAZONE 2.5MG TABLET PO SCH (08:30)
[2022-07-30] MEDS: ASPIRIN 81MG TABLET PO SCH (08:53)
[2022-07-30] MEDS: ISOSORBIDE DINITRATE 30MG TABLET PO SCH (08:53)
[2022-07-30] MEDS: ATORVASTATIN CALCIUM 40MG TABLET PO SCH (08:54)
[2022-07-30] MEDS: POTASSIUM CHLORIDE 20MEQ TABLET SR PO SCH (08:54)
[2022-07-30] MEDS: PANTOPRAZOLE SODIUM 40 MG/VIAL IV SCH (08:55)
[2022-07-30] MEDS: TAMSULOSIN HCL 0.4MG SR CAPSULE PO SCH (08:55)
[2022-07-30] MEDS: SILDENAFIL CITRATE 20MG TABLET PO SCH (08:55)
[2022-07-30] MEDS: NIFEDIPINE XL 30MG TAB PO SCH (08:55)
[2022-07-30] MEDS: APIXABAN 2.5 MG TABLET PO SCH (08:56)
[2022-07-30] MEDS: CHOLECALCIFEROL (D3) 1000 UNIT TABLET PO SCH (08:56)
[2022-07-30 12:00] VITALS: BP 110/56
[2022-07-30] MEDS: METOLAZONE 5MG TABLET PO SCH (12:07)
[2022-07-30] MEDS ORDERED: IPRATROPIUM BROMIDE (0.02%) 0.5MG/2.5ML NEB HHN PRN (12:30)
[2022-07-30] MEDS ORDERED: ALBUTEROL (0.083%) 2.5MG/3ML NEB HHN PRN (12:30)
[2022-07-30 12:42] LABS: BASOPHILS % 0.5 % (0.0-2.0); EOSINOPHILS % 1.3 % (0.0-5.0); HEMATOCRIT. 26.3 % (42.0-52.0); HEMOGLOBIN. 8.5 g/dL (14.0-18.0); MEAN CORPUSCULAR HEMOGLOBIN 27.1 pg (28.0-32.0); MEAN CORPUSCULAR VOLUME 84.4 fL (80.0-94.0); MEAN PLATELET VOLUME 6.7 fl (7.4-10.4); MONOCYTES % 11.8 % (2.0-8.0); NEUTROPHILS % 75.4 % (40.0-76.0); PLATELET 208 x1000/uL (130-400); RED BLOOD CELL COUNT 3.12 mill/uL (4.7-6.1); RED CELL DISTRIBUTION WIDTH 20.9 % (11.6-14.6)
[2022-07-30 16:00] VITALS: BP 109/69
[2022-07-30 16:55] VITALS: BP 110/69
[2022-07-31] MEDS ORDERED: FAMOTIDINE 20MG TABLET PO SCH (09:00)
== END 2022-07-30 17:30 | disposition home or self-care (01) | DRG 291 ==
LOC: ER 00:28 → 7WST 04:47 → EDBEDREQ 04:49 → EDBEDREQTM 04:49 → EDBEDREQ 04:50 → ENRESERV 18:49
PROVIDERS: ADMIT Internal Medicine; ATTEND Internal Medicine
DX: I13.0 Hypertensive heart and chronic kidney disease with heart failure and stage 1 through stage 4 chronic kidney disease, or unspecified chronic kidney disease (principal); I50.33 Acute on chronic diastolic (congestive) heart failure; I48.20 Chronic atrial fibrillation, unspecified; N17.9 Acute kidney failure, unspecified; R18.8 Other ascites; J84.9 Interstitial pulmonary disease, unspecified; N18.9 Chronic kidney disease, unspecified; K74.60 Unspecified cirrhosis of liver; I48.91 Unspecified atrial fibrillation; E11.22 Type 2 diabetes mellitus with diabetic chronic kidney disease; D63.1 Anemia in chronic kidney disease; E87.6 Hypokalemia; I34.0 Nonrheumatic mitral (valve) insufficiency; Z79.01 Long term (current) use of anticoagulants; Z79.899 Other long term (current) drug therapy; Z96.659 Presence of unspecified artificial knee joint; Z20.822 Contact with and (suspected) exposure to COVID-19
CPT/HCPCS: 36415; 71045; 80048; 80053; 83605; 83880; 84484; 85025; 87426; 90686; 93005; 97162; 99285; C9113; J1650; J1940

== ENCOUNTER 2022-08-12 19:27 | Inpatient (IN) | payer OTHER ==
[~2022-08-12] VITALS: Ht 172.7 cm; Wt 90.7 kg
[2022-08-12 20:42] LABS: BASOPHILS % 0.5 % (0.0-2.0); EOSINOPHILS % 0.6 % (0.0-5.0); HEMOGLOBIN. 9.6 g/dL (14.0-18.0); MEAN CORPUSCULAR HEMOGLOBIN 26.3 pg (28.0-32.0); MEAN CORPUSCULAR VOLUME 85.6 fL (80.0-94.0); MEAN PLATELET VOLUME 6.8 fl (7.4-10.4); MONOCYTES % 9.5 % (2.0-8.0); NEUTROPHILS % 76.4 % (40.0-76.0); PLATELET 270 x1000/uL (130-400); RED BLOOD CELL COUNT 3.63 mill/uL (4.7-6.1); RED CELL DISTRIBUTION WIDTH 21.5 % (11.6-14.6)
[2022-08-12 20:43] LABS: CHLORIDE 102 mEq/L (98-107)
[2022-08-12 20:44] LABS: INR 1.4; PROTHROMBIN TIME 14.6 sec (9.6-11.0)
[2022-08-12 20:55] LABS: ETHANOL BLOOD < 10 mg/dL
[2022-08-12] MEDS ORDERED: FUROSEMIDE 100MG/10ML VIAL IVP ONE (22:45)
[2022-08-13] MEDS ORDERED: FUROSEMIDE 100MG/10ML VIAL IVP NR (00:45)
[2022-08-13 04:00] VITALS: BP 152/84
[2022-08-13] MEDS: FUROSEMIDE 40MG/4ML VIAL IVP SCH ×3 (06:08→20:41)
[2022-08-13 08:00] VITALS: BP 152/94
[2022-08-13] MEDS: POTASSIUM CHLORIDE 20MEQ TABLET SR PO SCH ×2 (08:41→17:22)
[2022-08-13] MEDS: PANTOPRAZOLE 40MG DR TABLET PO SCH (08:42)
[2022-08-13] MEDS: METOLAZONE 2.5MG TABLET PO SCH (08:42)
[2022-08-13] MEDS: APIXABAN 2.5 MG TABLET PO SCH ×2 (08:42→17:00)
[2022-08-13] MEDS: NIFEDIPINE XL 30MG TAB PO SCH ×2 (08:42→17:22)
[2022-08-13] MEDS: TAMSULOSIN HCL 0.4MG SR CAPSULE PO SCH (08:42)
[2022-08-13] MEDS: SILDENAFIL CITRATE 20MG TABLET PO SCH ×2 (08:43→17:23)
[2022-08-13] MEDS: ISOSORBIDE MONONITRATE 60MG TABLET SR 24HR PO SCH ×2 (08:43→17:23)
[2022-08-13 12:00] VITALS: BP 147/83
[2022-08-13] MEDS ORDERED: NALOXONE HCL 0.4MG/ML VIAL IV PRN (15:15)
[2022-08-13] MEDS: HYDROCODONE/ACETAMINOPHEN 5/325MG TABLET PO PRN ×2 (15:17→20:41)
[2022-08-13 16:00] VITALS: BP 119/68
[2022-08-13 18:05] LABS: BASOPHILS % 0.3 % (0.0-2.0); EOSINOPHILS % 0.5 % (0.0-5.0); HEMATOCRIT. 27.6 % (42.0-52.0); HEMOGLOBIN. 8.5 g/dL (14.0-18.0); LYMPHOCYTES % 9.5 % (20.0-50.0); MEAN CORPUSCULAR HEMOGLOBIN 26.6 pg (28.0-32.0); MEAN CORPUSCULAR VOLUME 86.4 fL (80.0-94.0); MEAN PLATELET VOLUME 6.6 fl (7.4-10.4); MONOCYTES % 12.5 % (2.0-8.0); NEUTROPHILS % 77.2 % (40.0-76.0); PLATELET 242 x1000/uL (130-400); RED BLOOD CELL COUNT 3.19 mill/uL (4.7-6.1); RED CELL DISTRIBUTION WIDTH 21.1 % (11.6-14.6)
[2022-08-13 18:22] LABS: CHLORIDE 103 mEq/L (98-107)
[2022-08-13 20:00] VITALS: BP 100/59
[2022-08-13] MEDS: ATORVASTATIN CALCIUM 40MG TABLET PO SCH (20:41)
[2022-08-14] VITALS: BP 107/61
[2022-08-14 04:00] VITALS: BP 113/62
[2022-08-14] MEDS: HYDROCODONE/ACETAMINOPHEN 5/325MG TABLET PO PRN (05:22)
[2022-08-14] MEDS: FUROSEMIDE 40MG/4ML VIAL IVP SCH ×3 (05:22→21:40)
[2022-08-14 08:00] VITALS: BP 122/61
[2022-08-14] MEDS: SILDENAFIL CITRATE 20MG TABLET PO SCH ×2 (08:47→16:58)
[2022-08-14] MEDS: NIFEDIPINE XL 30MG TAB PO SCH ×2 (08:47→16:59)
[2022-08-14] MEDS: METOLAZONE 2.5MG TABLET PO SCH (08:48)
[2022-08-14] MEDS: ISOSORBIDE MONONITRATE 60MG TABLET SR 24HR PO SCH ×2 (08:48→16:58)
[2022-08-14] MEDS: PANTOPRAZOLE 40MG DR TABLET PO SCH (08:48)
[2022-08-14] MEDS: TAMSULOSIN HCL 0.4MG SR CAPSULE PO SCH (08:48)
[2022-08-14] MEDS: POTASSIUM CHLORIDE 20MEQ TABLET SR PO SCH ×2 (08:48→16:58)
[2022-08-14] MEDS: APIXABAN 2.5 MG TABLET PO SCH ×2 (08:49→16:52)
[2022-08-14 12:00] VITALS: BP 110/70
[2022-08-14] MEDS ORDERED: METOLAZONE 2.5MG TABLET PO NR ×2 (14:15→21:30)
[2022-08-14 16:00] VITALS: BP 109/57
[2022-08-14 16:15] LABS: CHLORIDE 102 mEq/L (98-107)
[2022-08-14 16:19] LABS: BASOPHILS % 0.3 % (0.0-2.0); HEMATOCRIT. 25.8 % (42.0-52.0); HEMOGLOBIN. 8.1 g/dL (14.0-18.0); LYMPHOCYTES % 10.7 % (20.0-50.0); MEAN CORPUSCULAR HEMOGLOBIN 26.4 pg (28.0-32.0); MEAN CORPUSCULAR VOLUME 84.1 fL (80.0-94.0); MEAN PLATELET VOLUME 6.7 fl (7.4-10.4); MONOCYTES % 11.2 % (2.0-8.0); NEUTROPHILS % 76.8 % (40.0-76.0); PLATELET 233 x1000/uL (130-400); RED BLOOD CELL COUNT 3.07 mill/uL (4.7-6.1); RED CELL DISTRIBUTION WIDTH 20.7 % (11.6-14.6)
[2022-08-14] MEDS ORDERED: FINA1TAB18 MT (16:47)
[2022-08-14] MEDS ORDERED: IPRA4AER INH (16:47)
[2022-08-14] MEDS ORDERED: CARV3.1242 MT (16:47)
[2022-08-14] MEDS ORDERED: CHOL200077 (16:47)
[2022-08-14 16:58] LABS: CLARITY URINE CLEAR (CLEAR); COLOR URINE YELLOW (YELLOW); KETONES URINE NEGATIVE (NEGATIVE); LEUKOCYTE ESTERASE URINE 2+ (NEGATIVE); NITRITE URINE NEGATIVE (NEGATIVE); OCCULT BLOOD URINE 2+ (NEGATIVE); PROTEIN URINE NEGATIVE (NEGATIVE); UROBILINOGEN URINE 0.2 E.U./dL (0.2-1.0)
[2022-08-14 20:00] VITALS: BP 118/58
[2022-08-14] MEDS: CARVEDILOL 3.125 MG TABLET PO SCH (21:08)
[2022-08-14] MEDS: ATORVASTATIN CALCIUM 40MG TABLET PO SCH (21:08)
[2022-08-15] VITALS: BP 108/58
[2022-08-15 04:00] VITALS: BP 112/58
[2022-08-15] MEDS: HYDROCODONE/ACETAMINOPHEN 5/325MG TABLET PO PRN ×2 (04:59→21:12)
[2022-08-15] MEDS: FUROSEMIDE 40MG/4ML VIAL IVP SCH ×3 (05:18→21:08)
[2022-08-15 07:31] LABS: HEMOGLOBIN. 8.3 g/dL (14.0-18.0); RED BLOOD CELL COUNT 3.07 mill/uL (4.7-6.1)
[2022-08-15 07:35] LABS: BASOPHILS % 0.5 % (0.0-2.0); EOSINOPHILS % 1.3 % (0.0-5.0); HEMATOCRIT. 25.6 % (42.0-52.0); LYMPHOCYTES % 12.8 % (20.0-50.0); MEAN CORPUSCULAR VOLUME 83.5 fL (80.0-94.0); MEAN PLATELET VOLUME 6.8 fl (7.4-10.4); MONOCYTES % 9.7 % (2.0-8.0); NEUTROPHILS % 75.7 % (40.0-76.0); PLATELET 241 x1000/uL (130-400); RED CELL DISTRIBUTION WIDTH 20.3 % (11.6-14.6)
[2022-08-15 07:59] LABS: PHOSPHORUS 3.2 mg/dL (2.5-4.9)
[2022-08-15 08:00] VITALS: BP 119/62
[2022-08-15] MEDS: ISOSORBIDE MONONITRATE 60MG TABLET SR 24HR PO SCH ×2 (08:52→17:37)
[2022-08-15] MEDS: PANTOPRAZOLE 40MG DR TABLET PO SCH (08:52)
[2022-08-15] MEDS: TAMSULOSIN HCL 0.4MG SR CAPSULE PO SCH (08:53)
[2022-08-15] MEDS: POTASSIUM CHLORIDE 20MEQ TABLET SR PO SCH ×2 (08:53→17:37)
[2022-08-15] MEDS: CARVEDILOL 3.125 MG TABLET PO SCH ×2 (08:53→21:08)
[2022-08-15] MEDS: SILDENAFIL CITRATE 20MG TABLET PO SCH ×2 (08:53→17:37)
[2022-08-15] MEDS: METOLAZONE 2.5MG TABLET PO SCH (08:53)
[2022-08-15] MEDS: NIFEDIPINE XL 30MG TAB PO SCH ×2 (08:54→17:38)
[2022-08-15] MEDS: APIXABAN 2.5 MG TABLET PO SCH ×2 (08:55→17:00)
[2022-08-15 10:04] LABS: *AMPHETAMINES SCREEN URINE NEGATIVE (NEGATIVE); *BARBITURATES SCREEN URINE NEGATIVE (NEGATIVE); *BENZODIAZEPINES SCREEN URINE NEGATIVE (NEGATIVE); *COCAINE SCREEN URINE NEGATIVE (NEGATIVE); CANNABINOID URINE SCREEN NEGATIVE (NEGATIVE); METHADONE URINE SCREEN NEGATIVE (NEGATIVE); OPIATES URINE SCREEN NEGATIVE (NEGATIVE); PHENCYCLIDINE URINE SCREEN NEGATIVE (NEGATIVE)
[2022-08-15 12:00] VITALS: BP 126/76
[2022-08-15 16:00] VITALS: BP 116/56
[2022-08-15 20:00] VITALS: BP 113/62
[2022-08-15] MEDS: ATORVASTATIN CALCIUM 40MG TABLET PO SCH (21:08)
[2022-08-16] VITALS (7 sets, daily range): BP systolic 93–136; BP diastolic 50–83
[2022-08-16] MEDS: FUROSEMIDE 40MG/4ML VIAL IVP SCH ×3 (05:19→21:05)
[2022-08-16] MEDS: APIXABAN 2.5 MG TABLET PO SCH ×2 (09:00→16:44)
[2022-08-16] MEDS: PANTOPRAZOLE 40MG DR TABLET PO SCH (09:13)
[2022-08-16] MEDS: CARVEDILOL 3.125 MG TABLET PO SCH ×2 (09:13→20:43)
[2022-08-16] MEDS: ISOSORBIDE MONONITRATE 60MG TABLET SR 24HR PO SCH ×2 (09:13→17:19)
[2022-08-16] MEDS: METOLAZONE 2.5MG TABLET PO SCH (09:14)
[2022-08-16] MEDS: POTASSIUM CHLORIDE 20MEQ TABLET SR PO SCH ×2 (09:14→17:20)
[2022-08-16] MEDS: TAMSULOSIN HCL 0.4MG SR CAPSULE PO SCH (09:14)
[2022-08-16] MEDS: SILDENAFIL CITRATE 20MG TABLET PO SCH ×2 (09:14→17:19)
[2022-08-16] MEDS: NIFEDIPINE XL 30MG TAB PO SCH ×2 (09:14→17:00)
[2022-08-16] MEDS: HYDROCODONE/ACETAMINOPHEN 5/325MG TABLET PO PRN ×2 (14:15→23:30)
[2022-08-16] MEDS: ATORVASTATIN CALCIUM 40MG TABLET PO SCH (21:05)
[2022-08-17 04:00] VITALS: BP 120/67
[2022-08-17] MEDS: FUROSEMIDE 40MG/4ML VIAL IVP SCH ×3 (06:36→21:12)
[2022-08-17] MEDS ORDERED: MAGNESIUM HYDROXIDE 400MG/5ML 30ML UDC PO PRN (07:15)
[2022-08-17 07:55] LABS: BASOPHILS % 0.4 % (0.0-2.0); EOSINOPHILS % 0.5 % (0.0-5.0); HEMATOCRIT. 28.4 % (42.0-52.0); HEMOGLOBIN. 8.9 g/dL (14.0-18.0); LYMPHOCYTES % 10.2 % (20.0-50.0); MEAN CORPUSCULAR HEMOGLOBIN 26.6 pg (28.0-32.0); MEAN CORPUSCULAR VOLUME 84.9 fL (80.0-94.0); MEAN PLATELET VOLUME 6.7 fl (7.4-10.4); MONOCYTES % 8.6 % (2.0-8.0); NEUTROPHILS % 80.3 % (40.0-76.0); PLATELET 270 x1000/uL (130-400); RED BLOOD CELL COUNT 3.35 mill/uL (4.7-6.1); RED CELL DISTRIBUTION WIDTH 20.6 % (11.6-14.6)
[2022-08-17 08:00] VITALS: BP 124/69
[2022-08-17] MEDS: CARVEDILOL 3.125 MG TABLET PO SCH ×2 (09:00→21:00)
[2022-08-17] MEDS: APIXABAN 2.5 MG TABLET PO SCH ×2 (09:00→17:59)
[2022-08-17] MEDS ORDERED: LIDOCAINE HCL 1% 10 MG/ML 10ML VIAL ONE (09:31)
[2022-08-17] MEDS ORDERED: SODIUM BICARBONATE 4% (2.4MEQ) 5ML VIAL IV ONE (09:32)
[2022-08-17] MEDS: SILDENAFIL CITRATE 20MG TABLET PO SCH ×2 (11:31→17:59)
[2022-08-17] MEDS: FAMOTIDINE 20MG TABLET PO SCH (11:31)
[2022-08-17] MEDS: TAMSULOSIN HCL 0.4MG SR CAPSULE PO SCH (11:31)
[2022-08-17] MEDS: POTASSIUM CHLORIDE 20MEQ TABLET SR PO SCH ×2 (11:31→17:59)
[2022-08-17] MEDS: NIFEDIPINE XL 30MG TAB PO SCH ×2 (11:32→17:00)
[2022-08-17] MEDS: ISOSORBIDE MONONITRATE 60MG TABLET SR 24HR PO SCH ×2 (11:32→17:00)
[2022-08-17] MEDS: METOLAZONE 2.5MG TABLET PO SCH (11:32)
[2022-08-17 12:00] VITALS: BP 109/60
[2022-08-17 16:00] VITALS: BP 113/54
[2022-08-17 20:00] VITALS: BP 109/56
[2022-08-17] MEDS: ATORVASTATIN CALCIUM 40MG TABLET PO SCH (21:12)
[2022-08-18] VITALS: BP 104/56
[2022-08-18 04:00] VITALS: BP 114/57
[2022-08-18] MEDS: FUROSEMIDE 40MG/4ML VIAL IVP SCH ×3 (05:23→21:33)
[2022-08-18 05:54] LABS: BASOPHILS % 0.8 % (0.0-2.0); EOSINOPHILS % 1.8 % (0.0-5.0); HEMATOCRIT. 29.4 % (42.0-52.0); HEMOGLOBIN. 9.1 g/dL (14.0-18.0); LYMPHOCYTES % 15.1 % (20.0-50.0); MEAN CORPUSCULAR HEMOGLOBIN 26.4 pg (28.0-32.0); MEAN PLATELET VOLUME 6.7 fl (7.4-10.4); MONOCYTES % 10.6 % (2.0-8.0); NEUTROPHILS % 71.7 % (40.0-76.0); PLATELET 255 x1000/uL (130-400); RED BLOOD CELL COUNT 3.46 mill/uL (4.7-6.1); RED CELL DISTRIBUTION WIDTH 20.6 % (11.6-14.6)
[2022-08-18 07:04] LABS: PHOSPHORUS 3.6 mg/dL (2.5-4.9)
[2022-08-18 08:00] VITALS: BP 114/62
[2022-08-18] MEDS: ISOSORBIDE MONONITRATE 60MG TABLET SR 24HR PO SCH ×2 (09:19→17:00)
[2022-08-18] MEDS: SILDENAFIL CITRATE 20MG TABLET PO SCH ×2 (09:19→17:00)
[2022-08-18] MEDS: POTASSIUM CHLORIDE 20MEQ TABLET SR PO SCH ×2 (09:19→17:15)
[2022-08-18] MEDS: TAMSULOSIN HCL 0.4MG SR CAPSULE PO SCH (09:19)
[2022-08-18] MEDS: FAMOTIDINE 20MG TABLET PO SCH (09:19)
[2022-08-18] MEDS: APIXABAN 2.5 MG TABLET PO SCH ×2 (09:19→17:15)
[2022-08-18] MEDS: NIFEDIPINE XL 30MG TAB PO SCH ×2 (09:20→17:00)
[2022-08-18] MEDS: CARVEDILOL 3.125 MG TABLET PO SCH ×2 (09:20→21:00)
[2022-08-18] MEDS: HYDROCODONE/ACETAMINOPHEN 5/325MG TABLET PO PRN (12:19)
[2022-08-18 12:55] VITALS: BP 96/49
[2022-08-18 16:00] VITALS: BP 95/51
[2022-08-18 20:00] VITALS: BP 93/45
[2022-08-18] MEDS: ATORVASTATIN CALCIUM 40MG TABLET PO SCH (21:33)
[2022-08-19] VITALS: BP 126/60
[2022-08-19 04:00] VITALS: BP 108/63
[2022-08-19] MEDS: FUROSEMIDE 40MG/4ML VIAL IVP SCH ×2 (05:57→13:57)
[2022-08-19 08:00] VITALS: BP 116/58
[2022-08-19] MEDS: CARVEDILOL 3.125 MG TABLET PO SCH (09:00)
[2022-08-19] MEDS: FAMOTIDINE 20MG TABLET PO SCH (09:12)
[2022-08-19] MEDS: POTASSIUM CHLORIDE 20MEQ TABLET SR PO SCH (09:12)
[2022-08-19] MEDS: SILDENAFIL CITRATE 20MG TABLET PO SCH (09:12)
[2022-08-19] MEDS: NIFEDIPINE XL 30MG TAB PO SCH (09:12)
[2022-08-19] MEDS: APIXABAN 2.5 MG TABLET PO SCH (09:12)
[2022-08-19] MEDS: TAMSULOSIN HCL 0.4MG SR CAPSULE PO SCH (09:13)
[2022-08-19] MEDS: ISOSORBIDE MONONITRATE 60MG TABLET SR 24HR PO SCH (09:13)
[2022-08-19] MEDS ORDERED: METOLAZONE 2.5MG TABLET PO NR (11:30)
[2022-08-19 15:04] VITALS: BP 109/59
== END 2022-08-19 17:44 | disposition home or self-care (01) | DRG 291 ==
LOC: ER 19:41 → MICUSO 23:32 → EDBEDREQ 23:35 → EDBEDREQTM 23:35 → 7WST 08-13 04:01
PROVIDERS: ADMIT Internal Medicine; ATTEND Internal Medicine
PROC: 0W9G3ZZ Drainage of Peritoneal Cavity, Percutaneous Approach (ICD-10-PCS; principal; 2022-08-17)
DX: I13.0 Hypertensive heart and chronic kidney disease with heart failure and stage 1 through stage 4 chronic kidney disease, or unspecified chronic kidney disease (principal); I50.33 Acute on chronic diastolic (congestive) heart failure; I47.20 Ventricular tachycardia, unspecified; N17.9 Acute kidney failure, unspecified; R18.8 Other ascites; I48.19 Other persistent atrial fibrillation; I42.0 Dilated cardiomyopathy; N18.9 Chronic kidney disease, unspecified; K74.60 Unspecified cirrhosis of liver; D63.1 Anemia in chronic kidney disease; I27.29 Other secondary pulmonary hypertension; I27.81 Cor pulmonale (chronic); N50.89 Other specified disorders of the male genital organs; I34.0 Nonrheumatic mitral (valve) insufficiency; E78.5 Hyperlipidemia, unspecified; Z96.659 Presence of unspecified artificial knee joint; Z79.899 Other long term (current) drug therapy; Z79.01 Long term (current) use of anticoagulants
CPT/HCPCS: 36415; 49083; 71045; 76705; 80048; 80053; 80305; 80320; 81003; 83735; 83880; 84100; 84484; 85025; 87426; 93005; 93306; 97116; 97162; 97530; 99285; A6261; J1940; J3490; G0480

== ENCOUNTER 2022-09-03 17:49 | Inpatient (IN) | payer OTHER ==
[~2022-09-03] VITALS: Ht 172.7 cm; Wt 99.9 kg
[~2022-09-03 17:49] MED LIST changes: -ACYC15OI7 TP; +CARV3.1242 MT; -CHOL100062 PO; +CHOL200077; +FINA1TAB18 MT; +IPRA4AER INH; -REV20 MT
[2022-09-03 22:32] LABS: CHLORIDE 104 mEq/L (98-107)
[2022-09-03 22:35] LABS: BASOPHILS % 0.5 % (0.0-2.0); EOSINOPHILS % 0.8 % (0.0-5.0); HEMATOCRIT. 26.5 % (42.0-52.0); HEMOGLOBIN. 8.2 g/dL (14.0-18.0); MEAN CORPUSCULAR HEMOGLOBIN 26.5 pg (28.0-32.0); MEAN CORPUSCULAR VOLUME 85.9 fL (80.0-94.0); MEAN PLATELET VOLUME 6.5 fl (7.4-10.4); MONOCYTES % 9.3 % (2.0-8.0); NEUTROPHILS % 76.4 % (40.0-76.0); PLATELET 323 x1000/uL (130-400); RED BLOOD CELL COUNT 3.08 mill/uL (4.7-6.1); RED CELL DISTRIBUTION WIDTH 20.5 % (11.6-14.6)
[2022-09-03 22:41] LABS: INR 1.4; PARTIAL THROMBOPLASTIN TIME 29.5 sec (23.4-31.0); PROTHROMBIN TIME 14.6 sec (9.6-11.0)
[2022-09-03] MEDS ORDERED: CEFTRIAXONE 1 G PREMIX 50 ML IV ONE (23:45)
[2022-09-03] MEDS ORDERED: AZITHROMYCIN 500MG/250ML 250 ML IV ONE (23:45)
[2022-09-04] MEDS ORDERED: FUROSEMIDE 40MG/4ML VIAL IVP ONE (02:00)
[2022-09-04] MEDS ORDERED: CALCIUM GLUCONATE 1,000 MG in DEXT 5% WATER 100 ML IV ONE (03:15)
[2022-09-04] MEDS ORDERED: INSULIN REGULAR (HUMULIN R) 300UNITS/3ML VIAL IV ONE (03:15)
[2022-09-04] MEDS ORDERED: DEXTROSE 50% WATER 50ML SYRINGE IV ONE (03:15)
[2022-09-04] MEDS: ALBUTEROL (0.083%) 2.5MG/3ML NEB HHN SCH ×3 (03:23→04:34)
[2022-09-04] MEDS ORDERED: CALCIUM GLUCONATE 1GM PREMIX 100 ML IV NR (03:30)
[2022-09-04 06:10] VITALS: BP 106/63
[2022-09-04] MEDS ORDERED: INFLUENZA VACCINE 05/PF 0.5 ML SYRINGE IM ONE (06:45)
[2022-09-04 08:00] VITALS: BP_SYST 105; BP_SYST 119; BP_DIAS 61; BP_DIAS 81
[2022-09-04 09:28] LABS: HEMATOCRIT 24.3 % (42.0-52.0); HEMOGLOBIN 7.6 g/dL (14.0-18.0); MEAN CORPUSCULAR HEMOGLOBIN 26.9 pg (28.0-32.0); MEAN CORPUSCULAR VOLUME 86.5 fL (80.0-94.0); PLATELET 281 x1000/uL (130-400); RED BLOOD CELL COUNT 2.81 mill/uL (4.7-6.1); RED CELL DISTRIBUTION WIDTH 20.4 % (11.6-14.6)
[2022-09-04] MEDS ORDERED: SODIUM POLYSTYRENE SULFONATE 15 G/60 ML BOT PO NR (11:15)
[2022-09-04 12:00] VITALS: BP 119/81
[2022-09-04] MEDS ORDERED: IPRATROPIUM/ALBUTEROL 0.5-3(2.5)MG/3ML NEB HHN PRN (12:00)
[2022-09-04] MEDS: ATORVASTATIN CALCIUM 40MG TABLET PO SCH (12:00)
[2022-09-04] MEDS ORDERED: ALBUTEROL (0.083%) 2.5MG/3ML NEB HHN PRN (12:15)
[2022-09-04] MEDS ORDERED: IPRATROPIUM BROMIDE (0.02%) 0.5MG/2.5ML NEB HHN PRN (12:15)
[2022-09-04] MEDS: TAMSULOSIN HCL 0.4MG SR CAPSULE PO SCH (12:39)
[2022-09-04] MEDS: CARVEDILOL 3.125 MG TABLET PO SCH ×2 (12:40→21:52)
[2022-09-04] MEDS: ENOXAPARIN 100MG/ML SYR SUBCUT SCH (12:43)
[2022-09-04 15:01] LABS: HEPATITIS B SURFACE ANTIGEN NEGATIVE
[2022-09-04 16:39] VITALS: BP 129/85
[2022-09-04 16:50] LABS: CREATINE KINASE MB FRACTION 2.6 ng/mL (0.5-3.6)
[2022-09-04 20:00] VITALS: BP 132/61
[2022-09-04] MEDS ORDERED: PNEUMOCOCCAL 23-VAL P-SAC VAC 0.5 ML IM ONE (21:00)
[2022-09-04 23:39] LABS: CREATINE KINASE MB FRACTION 2.3 ng/mL (0.5-3.6)
[2022-09-05] VITALS (11 sets, daily range): BP systolic 110–137; BP diastolic 42–81
[2022-09-05] MEDS ORDERED: LIDOCAINE HCL 1% 10 MG/ML 10ML VIAL ONE (07:29)
[2022-09-05] MEDS ORDERED: HEPARIN 1000 UNITS/ML 10ML ONE (07:29)
[2022-09-05] MEDS: CARVEDILOL 3.125 MG TABLET PO SCH ×2 (09:35→21:00)
[2022-09-05] MEDS: TAMSULOSIN HCL 0.4MG SR CAPSULE PO SCH (09:35)
[2022-09-05] MEDS: ATORVASTATIN CALCIUM 40MG TABLET PO SCH (09:35)
[2022-09-05] MEDS: ACETAMINOPHEN 325MG TABLET PO PRN (09:36)
[2022-09-05] MEDS: ENOXAPARIN 100MG/ML SYR SUBCUT SCH (13:23)
[2022-09-06] VITALS: BP 146/77
[2022-09-06 04:00] VITALS: BP 151/75
[2022-09-06 06:44] LABS: BASOPHILS % 0.7 % (0.0-2.0); EOSINOPHILS % 0.8 % (0.0-5.0); HEMATOCRIT. 25.8 % (42.0-52.0); HEMOGLOBIN. 8.2 g/dL (14.0-18.0); LYMPHOCYTES % 16.6 % (20.0-50.0); MEAN CORPUSCULAR HEMOGLOBIN 26.8 pg (28.0-32.0); MEAN CORPUSCULAR VOLUME 84.5 fL (80.0-94.0); MEAN PLATELET VOLUME 6.5 fl (7.4-10.4); MONOCYTES % 12.3 % (2.0-8.0); NEUTROPHILS % 69.6 % (40.0-76.0); PLATELET 318 x1000/uL (130-400); RED BLOOD CELL COUNT 3.05 mill/uL (4.7-6.1); RED CELL DISTRIBUTION WIDTH 20.3 % (11.6-14.6)
[2022-09-06 08:00] VITALS: BP 138/71
[2022-09-06] MEDS: CARVEDILOL 3.125 MG TABLET PO SCH ×2 (09:00→20:15)
[2022-09-06] MEDS: ATORVASTATIN CALCIUM 40MG TABLET PO SCH (09:42)
[2022-09-06] MEDS: TAMSULOSIN HCL 0.4MG SR CAPSULE PO SCH (09:44)
[2022-09-06] MEDS: ENOXAPARIN 100MG/ML SYR SUBCUT SCH (11:49)
[2022-09-06 12:00] VITALS: BP 135/67
[2022-09-06] MEDS: ACETAMINOPHEN 325MG TABLET PO PRN (15:40)
[2022-09-06 16:00] VITALS: BP 133/78
[2022-09-06 20:00] VITALS: BP 136/66
[2022-09-07] VITALS (16 sets, daily range): BP systolic 118–156; BP diastolic 52–92
[2022-09-07 07:21] LABS: BASOPHILS % 0.8 % (0.0-2.0); HEMATOCRIT. 25.8 % (42.0-52.0); HEMOGLOBIN. 8.2 g/dL (14.0-18.0); LYMPHOCYTES % 19.4 % (20.0-50.0); MEAN CORPUSCULAR HEMOGLOBIN 27.1 pg (28.0-32.0); MEAN CORPUSCULAR VOLUME 84.8 fL (80.0-94.0); MEAN PLATELET VOLUME 6.5 fl (7.4-10.4); MONOCYTES % 11.1 % (2.0-8.0); NEUTROPHILS % 67.7 % (40.0-76.0); PLATELET 300 x1000/uL (130-400); RED BLOOD CELL COUNT 3.04 mill/uL (4.7-6.1); RED CELL DISTRIBUTION WIDTH 20.5 % (11.6-14.6)
[2022-09-07] MEDS: TAMSULOSIN HCL 0.4MG SR CAPSULE PO SCH (08:00)
[2022-09-07] MEDS: CARVEDILOL 3.125 MG TABLET PO SCH ×2 (08:01→21:00)
[2022-09-07] MEDS: ATORVASTATIN CALCIUM 40MG TABLET PO SCH (08:02)
[2022-09-07] MEDS: ACETAMINOPHEN 325MG TABLET PO PRN (17:21)
[2022-09-07] MEDS ORDERED: MORPHINE SULFATE 2 MG/ML CPJ (NOT FOR IM USE) IV PRN (21:15)
[2022-09-08] VITALS (7 sets, daily range): BP systolic 118–143; BP diastolic 69–87
[2022-09-08] MEDS: ACETAMINOPHEN 325MG TABLET PO PRN (00:25)
[2022-09-08 05:59] LABS: BASOPHILS % 0.6 % (0.0-2.0); EOSINOPHILS % 1.5 % (0.0-5.0); HEMATOCRIT. 25.2 % (42.0-52.0); HEMOGLOBIN. 7.9 g/dL (14.0-18.0); LYMPHOCYTES % 17.5 % (20.0-50.0); MEAN CORPUSCULAR HEMOGLOBIN 26.5 pg (28.0-32.0); MEAN CORPUSCULAR VOLUME 84.8 fL (80.0-94.0); MEAN PLATELET VOLUME 6.5 fl (7.4-10.4); MONOCYTES % 10.4 % (2.0-8.0); PLATELET 275 x1000/uL (130-400); RED BLOOD CELL COUNT 2.97 mill/uL (4.7-6.1)
[2022-09-08] MEDS: ATORVASTATIN CALCIUM 40MG TABLET PO SCH (08:20)
[2022-09-08] MEDS: TAMSULOSIN HCL 0.4MG SR CAPSULE PO SCH (08:21)
[2022-09-08] MEDS: CARVEDILOL 3.125 MG TABLET PO SCH ×2 (08:21→20:48)
[2022-09-08] MEDS ORDERED: NALOXONE HCL 0.4MG/ML VIAL IV PRN (10:30)
[2022-09-08] MEDS: AMLODIPINE 2.5MG TABLET PO SCH (11:13)
[2022-09-08] MEDS ORDERED: EPOETIN ALFA-EPBX 4,000 UNIT/ML VIAL SUBCUT SCH (21:00)
[2022-09-09] VITALS (11 sets, daily range): BP systolic 118–141; BP diastolic 64–90
[2022-09-09 05:28] LABS: BASOPHILS % 0.6 % (0.0-2.0); EOSINOPHILS % 1.1 % (0.0-5.0); HEMATOCRIT. 25.1 % (42.0-52.0); HEMOGLOBIN. 7.8 g/dL (14.0-18.0); LYMPHOCYTES % 12.6 % (20.0-50.0); MEAN CORPUSCULAR HEMOGLOBIN 26.6 pg (28.0-32.0); MEAN PLATELET VOLUME 6.5 fl (7.4-10.4); MONOCYTES % 9.3 % (2.0-8.0); NEUTROPHILS % 76.4 % (40.0-76.0); PLATELET 287 x1000/uL (130-400); RED BLOOD CELL COUNT 2.92 mill/uL (4.7-6.1); RED CELL DISTRIBUTION WIDTH 20.2 % (11.6-14.6)
[2022-09-09] MEDS: AMLODIPINE 2.5MG TABLET PO SCH ×2 (08:23→17:30)
[2022-09-09] MEDS: TAMSULOSIN HCL 0.4MG SR CAPSULE PO SCH (08:23)
[2022-09-09] MEDS: CARVEDILOL 3.125 MG TABLET PO SCH ×2 (08:24→20:18)
[2022-09-09] MEDS: ACETAMINOPHEN 325MG TABLET PO PRN (20:18)
[2022-09-09] MEDS ORDERED: ATORVASTATIN CALCIUM 40MG TABLET PO SCH (21:00)
[2022-09-10] VITALS (14 sets, daily range): BP systolic 127–148; BP diastolic 58–84
[2022-09-10 06:22] LABS: BASOPHILS % 0.6 % (0.0-2.0); EOSINOPHILS % 1.3 % (0.0-5.0); HEMOGLOBIN. 8.2 g/dL (14.0-18.0); LYMPHOCYTES % 13.8 % (20.0-50.0); MEAN CORPUSCULAR HEMOGLOBIN 26.8 pg (28.0-32.0); MEAN PLATELET VOLUME 6.5 fl (7.4-10.4); MONOCYTES % 11.1 % (2.0-8.0); NEUTROPHILS % 73.2 % (40.0-76.0); PLATELET 273 x1000/uL (130-400); RED BLOOD CELL COUNT 3.07 mill/uL (4.7-6.1); RED CELL DISTRIBUTION WIDTH 20.1 % (11.6-14.6)
[2022-09-10] MEDS ORDERED: HEPARIN 1000 UNITS/ML 10ML ONE (07:08)
[2022-09-10] MEDS ORDERED: FENTANYL CITRATE/PF 50MCG/ML 2ML VIAL IV NR (07:08)
[2022-09-10] MEDS ORDERED: LIDOCAINE HCL 1% 10 MG/ML 10ML VIAL ONE (07:08)
[2022-09-10] MEDS ORDERED: FENTANYL CITRATE/PF 50MCG/ML 2ML VIAL ONE (07:08)
[2022-09-10] MEDS ORDERED: CEFAZOLIN 1000MG PREMIX 50 ML IV NR (07:30)
[2022-09-10] MEDS: CARVEDILOL 3.125 MG TABLET PO SCH (08:44)
[2022-09-10] MEDS: TAMSULOSIN HCL 0.4MG SR CAPSULE PO SCH (08:44)
[2022-09-10] MEDS: AMLODIPINE 2.5MG TABLET PO SCH (08:44)
[2022-09-10] MEDS ORDERED: HYDR-4001 MT (14:06)
== END 2022-09-10 17:58 | disposition home or self-care (01) | DRG 640 ==
LOC: ER 18:34 → MICUSO 09-04 01:59 → EDBEDREQDT 09-04 02:02 → EDBEDREQ 09-04 02:02 → EDBEDREQTM 09-04 02:02 → 3WST 09-04 05:39
PROVIDERS: ADMIT Internal Medicine; ATTEND Internal Medicine
PROC: 5A1D70Z Performance of Urinary Filtration, Intermittent, Less than 6 Hours Per Day (ICD-10-PCS; principal; 2022-09-05)
PROC: 02HV33Z Insertion of Infusion Device into Superior Vena Cava, Percutaneous Approach (ICD-10-PCS; 2022-09-05)
PROC: B548ZZA Ultrasonography of Superior Vena Cava, Guidance (ICD-10-PCS; 2022-09-05)
PROC: 5A1D70Z Performance of Urinary Filtration, Intermittent, Less than 6 Hours Per Day (ICD-10-PCS; 2022-09-07)
PROC: 0JH63XZ Insertion of Tunneled Vascular Access Device into Chest Subcutaneous Tissue and Fascia, Percutaneous Approach (ICD-10-PCS; 2022-09-10)
PROC: 05HM33Z Insertion of Infusion Device into Right Internal Jugular Vein, Percutaneous Approach (ICD-10-PCS; 2022-09-10)
PROC: B5131ZA Fluoroscopy of Right Jugular Veins using Low Osmolar Contrast, Guidance (ICD-10-PCS; 2022-09-10)
DX: E87.5 Hyperkalemia (principal); I50.33 Acute on chronic diastolic (congestive) heart failure; N18.6 End stage renal disease; N17.9 Acute kidney failure, unspecified; I13.2 Hypertensive heart and chronic kidney disease with heart failure and with stage 5 chronic kidney disease, or end stage renal disease; I48.20 Chronic atrial fibrillation, unspecified; L03.119 Cellulitis of unspecified part of limb; R18.8 Other ascites; I42.9 Cardiomyopathy, unspecified; E87.3 Alkalosis; D63.1 Anemia in chronic kidney disease; E78.5 Hyperlipidemia, unspecified; E88.09 Other disorders of plasma-protein metabolism, not elsewhere classified; I27.21 Secondary pulmonary arterial hypertension; I08.1 Rheumatic disorders of both mitral and tricuspid valves; N40.0 Benign prostatic hyperplasia without lower urinary tract symptoms; K76.89 Other specified diseases of liver; Z99.2 Dependence on renal dialysis; Z79.01 Long term (current) use of anticoagulants; Z79.899 Other long term (current) drug therapy; Z96.659 Presence of unspecified artificial knee joint; Y92.89 Other specified places as the place of occurrence of the external cause
CPT/HCPCS: 36415; 36556; 36558; 36589; 71045; 76937; 77001; 80048; 80053; 82550; 82553; 83036; 83605; 83880; 84145; 84484; 85025; 85027; 86803; 86850; 86900; 87340; 87426; 90732; 90935; 93005; 93970; 93971; 94640; 97110; 97162; 97166; 99152; 99153; 99285; A6261; C1725; C1752; C1769; J0456; J0610; J0690; J0696; J0885; J1644; J1650; J1940; J3010; J3490; J7060; G0500

== ENCOUNTER 2023-02-18 14:40 | Inpatient (IN) | payer MEDICARE, OTHER ==
[~2023-02-18] VITALS: Ht 147.3 cm; Wt 83.1 kg
[~2023-02-18 14:40] MED LIST changes: +HYDR-4001 MT; -ISOS60TA76 PO; -POTA-205 MT
[2023-02-18 14:45] VITALS: O2SAT 97
[2023-02-18 15:46] LABS: BASOPHILS % 0.5 % (0.0-2.0); EOSINOPHILS % 0.2 % (0.0-5.0); HEMATOCRIT. 32.5 % (42.0-52.0); HEMOGLOBIN. 10.5 g/dL (14.0-18.0); LYMPHOCYTES % 8.9 % (20.0-50.0); MEAN CORPUSCULAR HGB CONC 32.4 g/dL (31.0-37.0); MEAN CORPUSCULAR VOLUME 98.6 fL (80.0-94.0); MEAN PLATELET VOLUME 8.3 fl (7.4-10.4); MONOCYTES % 6.6 % (2.0-8.0); NEUTROPHILS % 83.8 % (40.0-76.0); PLATELET 190 x1000/uL (130-400); RED CELL DISTRIBUTION WIDTH 17.2 % (11.6-14.6)
[2023-02-18] MEDS ORDERED: SODIUM CHLORIDE 0.9% 250 ML IV ONE (16:00)
[2023-02-18 16:06] LABS: CHLORIDE 99 mEq/L (98-107); INDEX HEMOLYSI 1 (1-3); INDEX ICTERIC 1 (1-4); INDEX LIPEMIC 1 (1-3); POTASSIUM 2.9 mEq/L (3.5-5.1); SODIUM 135 mEq/L (136-145)
[2023-02-18 16:17] LABS: ALANINE AMINOTRANSFERASE 16 IU/L (13-61); ALBUMIN 2.4 g/dL (3.4-5.0); ASPARTATE AMINOTRANSFERASE 21 IU/L (15-37); BILIRUBIN TOTAL 1.6 mg/dL (0.1-1.0); CALCIUM 8.5 mg/dL (8.5-10.1); CARBON DIOXIDE 27 mEq/L (21-32); CREATININE 4.5 mg/dL (0.6-1.3); GLUCOSE 92 mg/dL (70-105); PROTEIN TOTAL 7.2 g/dL (6.0-8.3); UREA NITROGEN BLOOD 42 mg/dL (7-21)
[2023-02-18 16:21] LABS: TROPONIN I HIGH SENSITIVITY 243 ng/L (<78)
[2023-02-18] MEDS ORDERED: CEFTRIAXONE 1GM PREMIX 50 ML IV ONE (21:15)
[2023-02-19] VITALS (12 sets, daily range): BP systolic 88–114; BP diastolic 55–73; PULSE 55–69; RESP 16–22; TEMP 96.5–99.4
[2023-02-19] MEDS ORDERED: HYDROCODONE/ACETAMINOPHEN 5/325MG TABLET PO PRN (01:45)
[2023-02-19] MEDS ORDERED: ACETAMINOPHEN 650MG/20.3ML UDC PO PRN (03:00)
[2023-02-19] MEDS ORDERED: VANCOMYCIN 1.25GM PMX (XELLIA) 250 ML IV NR ×2 (03:15→04:00)
[2023-02-19] MEDS ORDERED: ACETAMINOPHEN 325MG TABLET PO PRN (03:15)
[2023-02-19 04:44] LABS: TROPONIN I HIGH SENSITIVITY 223 ng/L (<78)
[2023-02-19] MEDS: APIXABAN 2.5 MG TABLET PO SCH ×2 (08:52→17:25)
[2023-02-19] MEDS: TAMSULOSIN HCL 0.4MG SR CAPSULE PO SCH (08:53)
[2023-02-19] MEDS: ATORVASTATIN CALCIUM 40MG TABLET PO SCH (08:55)
[2023-02-19] MEDS ORDERED: POTASSIUM CHLORIDE 20MEQ TABLET SR PO NR ×2 (09:00→15:45)
[2023-02-19] MEDS ORDERED: NALOXONE HCL 0.4MG/ML VIAL IV PRN (09:15)
[2023-02-19] MEDS: HYDROCODONE/ACETAMINOPHEN 5/325MG TABLET PO PRN ×2 (09:26→16:28)
[2023-02-19] MEDS ORDERED: ONDANSETRON HCL 4MG/2ML INJ IV PRN (11:45)
[2023-02-19] MEDS ORDERED: IPRATROPIUM/ALBUTEROL 0.5-3(2.5)MG/3ML NEB HHN PRN (11:45)
[2023-02-19] MEDS ORDERED: DOCUSATE SODIUM 100MG CAPSULE PO PRN (11:45)
[2023-02-19 12:30] LABS: BASOPHILS % 0.2 % (0.0-2.0); EOSINOPHILS % 0.4 % (0.0-5.0); HEMATOCRIT. 32.6 % (42.0-52.0); HEMOGLOBIN. 10.6 g/dL (14.0-18.0); LYMPHOCYTES % 7.8 % (20.0-50.0); MEAN CORPUSCULAR HEMOGLOBIN 31.8 pg (28.0-32.0); MEAN CORPUSCULAR HGB CONC 32.5 g/dL (31.0-37.0); MEAN CORPUSCULAR VOLUME 97.8 fL (80.0-94.0); MEAN PLATELET VOLUME 7.8 fl (7.4-10.4); MONOCYTES % 5.3 % (2.0-8.0); NEUTROPHILS % 86.3 % (40.0-76.0); PLATELET 202 x1000/uL (130-400); RED BLOOD CELL COUNT 3.33 mill/uL (4.7-6.1); RED CELL DISTRIBUTION WIDTH 17.2 % (11.6-14.6); WHITE BLOOD COUNT 4.6 x1000/uL (4.5-11.0)
[2023-02-19 12:44] LABS: POTASSIUM 3.1 mEq/L (3.5-5.1)
[2023-02-19 12:51] LABS: CALCIUM 7.7 mg/dL (8.5-10.1); CREATININE 3.7 mg/dL (0.6-1.3)
[2023-02-19 14:39] LABS: HEPATITIS B SURFACE ANTIGEN NEGATIVE
[2023-02-19 15:07] LABS: HEPATITIS B CORE AB IGM NEGATIVE
[2023-02-19 15:08] LABS: HEPATITIS A AB IGM NEGATIVE (NEGATIVE)
[2023-02-19] MEDS: PIPERACILLIN/TAZOBACTAM 3.375 G in DEXTROSE 5% WATER 50 ML IV SCH ×2 (17:33→20:21)
[2023-02-19 17:58] LABS: CREATINE KINASE MB FRACTION 1.9 ng/mL (0.5-3.6)
[2023-02-19 23:44] LABS: CREATINE KINASE MB FRACTION 1.8 ng/mL (0.5-3.6)
[2023-02-20] VITALS (15 sets, daily range): BP systolic 92–134; BP diastolic 56–68; PULSE 51–110; RESP 16–60; TEMP 97.6–98.5
[2023-02-20] MEDS: HYDROCODONE/ACETAMINOPHEN 5/325MG TABLET PO PRN ×4 (01:12→18:48)
[2023-02-20] MEDS: PIPERACILLIN/TAZOBACTAM 3.375 G in DEXTROSE 5% WATER 50 ML IV SCH (08:21)
[2023-02-20] MEDS: ATORVASTATIN CALCIUM 40MG TABLET PO SCH (08:22)
[2023-02-20] MEDS: APIXABAN 2.5 MG TABLET PO SCH ×2 (08:22→18:45)
[2023-02-20] MEDS: TAMSULOSIN HCL 0.4MG SR CAPSULE PO SCH (08:22)
[2023-02-20 09:53] LABS: HEMATOCRIT. 34.7 % (42.0-52.0); HEMOGLOBIN. 11.2 g/dL (14.0-18.0); MEAN CORPUSCULAR HEMOGLOBIN 31.9 pg (28.0-32.0); MEAN CORPUSCULAR HGB CONC 32.3 g/dL (31.0-37.0); MEAN CORPUSCULAR VOLUME 98.6 fL (80.0-94.0); PLATELET 209 x1000/uL (130-400); RED BLOOD CELL COUNT 3.52 mill/uL (4.7-6.1); RED CELL DISTRIBUTION WIDTH 16.6 % (11.6-14.6)
[2023-02-20 09:56] LABS: DIFFERENTIAL COMMENT 1
[2023-02-20 10:49] LABS: NUCLEATED RED BLOOD CELLS 1 /100 WBC
[2023-02-20 10:50] LABS: PLATELET ESTIMATE NORMAL
[2023-02-20 11:36] LABS: CALCIUM 8.2 mg/dL (8.5-10.1); POTASSIUM 3.9 mEq/L (3.5-5.1)
[2023-02-20 11:45] LABS: CREATININE 4.7 mg/dL (0.6-1.3)
[2023-02-20] MEDS ORDERED: VANCOMYCIN 1G PREMIX 200 ML IV NR (17:00)
[2023-02-21] VITALS: BP 113/67; PULSE 69; RESP 18; TEMP 97.6
[2023-02-21] MEDS: HYDROCODONE/ACETAMINOPHEN 5/325MG TABLET PO PRN ×3 (01:06→22:26)
[2023-02-21 04:00] VITALS: BP 108/70; PULSE 78; RESP 20; TEMP 97.4
[2023-02-21 07:33] LABS: BASOPHILS % 0.5 % (0.0-2.0); EOSINOPHILS % 0.6 % (0.0-5.0); HEMATOCRIT. 35.1 % (42.0-52.0); HEMOGLOBIN. 11.5 g/dL (14.0-18.0); LYMPHOCYTES % 9.1 % (20.0-50.0); MEAN CORPUSCULAR HEMOGLOBIN 32.5 pg (28.0-32.0); MEAN CORPUSCULAR HGB CONC 32.8 g/dL (31.0-37.0); MEAN CORPUSCULAR VOLUME 99.1 fL (80.0-94.0); MEAN PLATELET VOLUME 8.1 fl (7.4-10.4); MONOCYTES % 3.7 % (2.0-8.0); NEUTROPHILS % 86.1 % (40.0-76.0); PLATELET 221 x1000/uL (130-400); RED BLOOD CELL COUNT 3.54 mill/uL (4.7-6.1); RED CELL DISTRIBUTION WIDTH 17.3 % (11.6-14.6); WHITE BLOOD COUNT 6.4 x1000/uL (4.5-11.0)
[2023-02-21 07:42] LABS: DIFFERENTIAL COMMENT 1; POTASSIUM 3.9 mEq/L (3.5-5.1)
[2023-02-21 07:50] LABS: CALCIUM 8.1 mg/dL (8.5-10.1); CREATININE 4.6 mg/dL (0.6-1.3)
[2023-02-21 08:00] VITALS: BP 111/68; PULSE 73; RESP 20; TEMP 97.6
[2023-02-21] MEDS: ATORVASTATIN CALCIUM 40MG TABLET PO SCH (09:40)
[2023-02-21] MEDS: APIXABAN 2.5 MG TABLET PO SCH ×2 (09:40→17:50)
[2023-02-21] MEDS: TAMSULOSIN HCL 0.4MG SR CAPSULE PO SCH (09:41)
[2023-02-21 12:30] VITALS: BP 118/66; PULSE 68; RESP 18; TEMP 97.7
[2023-02-21 16:00] VITALS: BP 128/93; PULSE 70; RESP 18; TEMP 97.7
[2023-02-21 20:21] VITALS: BP 108/66; PULSE 70; RESP 20; TEMP 97.4
[2023-02-22] VITALS (15 sets, daily range): BP systolic 99–131; BP diastolic 54–105; PULSE 55–78; RESP 17–20; TEMP 96.9–98.4
[2023-02-22 07:30] LABS: BASOPHILS % 0.6 % (0.0-2.0); EOSINOPHILS % 0.8 % (0.0-5.0); HEMATOCRIT. 37.5 % (42.0-52.0); LYMPHOCYTES % 10.6 % (20.0-50.0); MEAN CORPUSCULAR HEMOGLOBIN 31.8 pg (28.0-32.0); MEAN CORPUSCULAR HGB CONC 31.9 g/dL (31.0-37.0); MEAN CORPUSCULAR VOLUME 99.4 fL (80.0-94.0); MEAN PLATELET VOLUME 7.2 fl (7.4-10.4); MONOCYTES % 4.5 % (2.0-8.0); NEUTROPHILS % 83.5 % (40.0-76.0); PLATELET 259 x1000/uL (130-400); RED BLOOD CELL COUNT 3.77 mill/uL (4.7-6.1); RED CELL DISTRIBUTION WIDTH 17.6 % (11.6-14.6)
[2023-02-22 07:53] LABS: POTASSIUM 3.9 mEq/L (3.5-5.1)
[2023-02-22 07:57] LABS: DIFFERENTIAL COMMENT 1
[2023-02-22] MEDS: APIXABAN 2.5 MG TABLET PO SCH ×2 (09:00→17:00)
[2023-02-22] MEDS: ATORVASTATIN CALCIUM 40MG TABLET PO SCH (09:00)
[2023-02-22] MEDS: TAMSULOSIN HCL 0.4MG SR CAPSULE PO SCH (09:00)
[2023-02-22] MEDS: HYDROCODONE/ACETAMINOPHEN 5/325MG TABLET PO PRN ×2 (10:11→17:04)
[2023-02-22 10:45] LABS: CALCIUM 8.4 mg/dL (8.5-10.1); CREATININE 4.4 mg/dL (0.6-1.3)
[2023-02-22] MEDS ORDERED: SODIUM CHLORIDE 0.9% 500 ML IV ONE ×2 (18:00→18:30)
[2023-02-23] VITALS: BP 123/73; PULSE 73; RESP 18; TEMP 97.7
[2023-02-23] MEDS: HYDROCODONE/ACETAMINOPHEN 5/325MG TABLET PO PRN ×2 (00:19→09:25)
[2023-02-23 04:00] VITALS: BP 119/79; PULSE 68; RESP 18; TEMP 97.5
[2023-02-23 08:00] VITALS: BP 126/84; PULSE 70; RESP 20; TEMP 96
[2023-02-23] MEDS: ATORVASTATIN CALCIUM 40MG TABLET PO SCH (09:22)
[2023-02-23 09:25] VITALS: BP 119/79; RESP 18
[2023-02-23] MEDS: APIXABAN 2.5 MG TABLET PO SCH (09:25)
[2023-02-23 09:26] VITALS: PULSE 68
[2023-02-23] MEDS: TAMSULOSIN HCL 0.4MG SR CAPSULE PO SCH (09:26)
== END 2023-02-23 14:11 | disposition home health service (06) | DRG 640 ==
LOC: ER 14:40 → 8WST 21:02 → EDBEDREQ 21:16 → EDBEDREQTM 21:16
PROVIDERS: ADMIT Internal Medicine; ATTEND Internal Medicine
PROC: 5A1D70Z Performance of Urinary Filtration, Intermittent, Less than 6 Hours Per Day (ICD-10-PCS; principal; 2023-02-19)
PROC: 5A1D70Z Performance of Urinary Filtration, Intermittent, Less than 6 Hours Per Day (ICD-10-PCS; 2023-02-20)
PROC: 5A1D70Z Performance of Urinary Filtration, Intermittent, Less than 6 Hours Per Day (ICD-10-PCS; 2023-02-22)
DX: E87.6 Hypokalemia (principal); N18.6 End stage renal disease; I13.2 Hypertensive heart and chronic kidney disease with heart failure and with stage 5 chronic kidney disease, or end stage renal disease; R18.8 Other ascites; I50.22 Chronic systolic (congestive) heart failure; R65.10 Systemic inflammatory response syndrome (SIRS) of non-infectious origin without acute organ dysfunction; I95.9 Hypotension, unspecified; E11.22 Type 2 diabetes mellitus with diabetic chronic kidney disease; K74.60 Unspecified cirrhosis of liver; D63.1 Anemia in chronic kidney disease; I48.91 Unspecified atrial fibrillation; Z96.659 Presence of unspecified artificial knee joint; Z99.2 Dependence on renal dialysis; Z79.01 Long term (current) use of anticoagulants; Z79.4 Long term (current) use of insulin
CPT/HCPCS: 36415; 71045; 80048; 80053; 80061; 80202; 82550; 82553; 83036; 83605; 83735; 84145; 84484; 85025; 86705; 86709; 86803; 87340; 90935; 93005; 93306; 97162; 97166; 97530; 99291; C1893; J0696; J2543; J3370; J7050; J7060